=== PATIENT | male | born 1945 | race Caucasian/White ===

== ENCOUNTER 2019-04-30 14:12 | Emergency (ER) | payer MEDICARE, OTHER, SELFPAY ==
[2019-04-30 14:17] VITALS: BP 181/96; PULSE 70; RESP 18; TEMP 36.3; O2SAT 98
--- NOTE | 2019-04-30 14:22 | DI.RAD.S_ITS ---
PROCEDURE: XR RIBS RT MIN 3V W CXR 1V INDICATIONS: rib pain TECHNIQUE: 2 views of the right ribs were acquired, along with a single view chest. COMPARISON: None. FINDINGS: Surgical changes and devices: None. Bones and chest wall: No displaced right rib fractures or dislocations. No suspicious bony lesions. Overlying soft tissues appear unremarkable. Lungs and pleura: No pleural effusions or pneumothorax. Lungs appear clear. Mediastinum: Mediastinal contours appear normal. Heart size is normal. There is aortic atherosclerosis. IMPRESSION: No displaced right rib fractures. Dictated by: Abhilash Gregorio M.D. on 04/30/2019 at 13:36 Approved by: Abhilash Gregorio M.D. on 04/30/2019 at 13:37
--- NOTE | 2019-04-30 15:01 | ED.FALL ---
HPI - Fall General Chief Complaint: Fall Stated Complaint: fell, right side rib pain, hit head Time Seen by Provider: 04/30/19 14:25 Source: patient Mode of arrival: Ambulatory Limitations: no limitations History of Present Illness HPI Narrative: 74-year-old male with history of hypertension, former smoker and does not take anticoagulation presents with a chief complaint of right upper back pain after a fall. He was stepping down off of the tailgate when he misjudged the height and fell backwards on to his right upper back, he rolled back and then lightly struck his head. He denies any loss of consciousness nor nausea or vomiting. He has full recall. He denies any neck pain. He denies any pain, numbness, tingling or weakness in his extremities. He denies any trouble controlling bowel or bladder. He denies any chest pain or shortness of breath nor cough or hemoptysis. The pain in his right upper back is worse with motion and improves with rest. He is otherwise well and free of complaint MD complaint: fall Onset (ago): hour(s) Fall from: standing Fall witnessed: no Place fall occurred: home Loss of consciousness: none Prolonged down time: no Symptoms prior to fall: none Context: tripped/slipped Location of injury: back Related Data Previous Rx's Medication Instructions Recorded hydrocodone-acetaminophen 1 tab PO Q4-6H PRN #10 tab 04/30/19 lidocaine [Lidoderm] 1 patch TOP DAILY #15 each 04/30/19 Allergies Allergy/AdvReac Type Severity Reaction Status Date / Time lisinopril [From PRINIVIL] Allergy Intermediate HYPERACTIVI Unverified 07/29/17 12:02 TY Review of Systems Constitutional Constitutional: Denies chills, Denies fatigue, Denies fever(s), Denies frequent falls, Denies lethargy and Denies weakness Eyes Eyes: Denies change in vision, Denies eye discharge, Denies irritation and Denies loss of vision ENT Ears, Nose, Mouth, and Throat: Denies change in voice, Denies dizziness, Denies neck pain, Denies sore throat and Denies throat swelling Cardiovascular Cardiovascular: Denies chest pain, Denies irregular heart rhythm, Denies lightheadedness, Denies palpitations, Denies dyspnea, Denies dyspnea on exertion and Denies orthopnea Respiratory Respiratory: Denies cough, Denies dyspnea, Denies dyspnea on exertion and Denies wheezing Gastrointestinal Gastrointestinal: Denies abdominal pain, Denies change in bowel habits, Denies diarrhea, Denies nausea and Denies vomiting Genitourinary Genitourinary: Denies hematuria, Denies flank pain, Denies urinary incontinence and Denies urinary urgency Musculoskeletal Musculoskeletal: Reports back pain, Denies muscle weakness, Denies neck pain, Denies numbness and Denies tingling Integumentary/Breasts Skin/Breast: Denies pruritus, Denies erythema, Denies rash and Denies wounds Neurologic Neurologic: Denies behavioral changes, Denies confusion, Denies dizziness, Denies frequent falls, Denies loss of vision, Denies numbness, Denies tingling and Denies weakness Psychiatric Psychiatric: Denies anxiety, Denies behavioral changes, Denies confusion, Denies depression, Denies homicidal ideation and Denies suicidal ideation Endocrine Endocrine: Denies fatigue, Denies flushing and Denies palpitations Hematologic/Lymphatic Hematologic/Lymphatic: Denies easy bruising Allergic/Immunologic Allergic/Immunologic: Denies urticaria, Denies throat swelling and Denies wheezing Patient History Social History Smoking Status: Former smoker Smoking Status: Former smoker alcohol intake frequency: a few times a week Substance Use Type: does not use Exam Narrative Exam Narrative: GENERAL: [74] year old patient appears stated age. GCS 15 Well-nourished, well-developed patient, in mild distress. HEAD: Atraumatic. Normocephalic. No contusions or abrasions noted EYES: Pupils equal round and reactive. Extraocular motions intact. No scleral icterus. No injection or drainage. ENT: Nose without bleeding, purulent drainage. Throat without erythema, tonsillar hypertrophy or exudate. Airway patent. NECK: Trachea midline. Non tender, no step-off, full painless range of motion CARDIOVASCULAR: Regular rate and rhythm without murmurs, gallops, or rubs. RESPIRATORY: Clear to auscultation. Breath sounds equal bilaterally. No wheezes, rales, or rhonchi. GASTROINTESTINAL: Abdomen soft, non-tender, nondistended. EXTREMITIES: No edema or joint tenderness. Full painless range of motion of right shoulder BACK: There is some tenderness in mild swelling lateral to the middle thoracic her and medial to the right scapula. There is no break in the skin, no palpable hematoma or laceration. NEURO: AOx3. SKIN: No rash or erythema of visible areas Initial Vital Signs Initial Vital Signs: Vital Signs Temperature 97.3 F L 04/30/19 14:17 Pulse Rate 70 04/30/19 14:17 Respiratory Rate 18 04/30/19 14:17 Blood Pressure 181/96 H 04/30/19 14:17 Pulse Oximetry 98 04/30/19 14:17 Course Orders Ordered: ED Orders 04/30/19 14:22 XR ribs RT min 3V w CXR1V Stat Discontinued Medications Lidocaine (Lidoderm) 1 each TOP NOW ONE Stop: 04/30/19 14:55 Last Admin: 04/30/19 15:02 Dose: 1 each Documented by: ANTOLIN Vital Signs Vital signs: Vital Signs - 8 hr 04/30/19 14:17 04/30/19 15:14 Temperature 97.3 F L Pulse Rate 70 71 Respiratory Rate 18 16 Blood Pressure 181/96 H Blood Pressure [Left Arm] 163/94 H Pulse Oximetry 98 99 MDM - Fall Imaging Data Rib Xray: Radiologist's Impression: Kenton Riojas 74 M 1945 [place] [address] XRay Report Signed Patient: Kenton Riojas LMR#: [id number] : [id number]:[id number] Age/Sex: 74 / MDate of Service: 04/30/19 Loc: ED Accession Number: [id number] Procedure: XR ribs RT min 3V w CXR1V Ordering Provider: Christopher Bowman D.O. PROCEDURE: XR RIBS RT MIN 3V W CXR 1V INDICATIONS: rib pain TECHNIQUE: 2 views of the right ribs were acquired, along with a single view chest. COMPARISON: None. FINDINGS: Surgical changes and devices: None. Bones and chest wall: No displaced right rib fractures or dislocations. No suspicious bony lesions. Overlying soft tissues appear unremarkable. Lungs and pleura: No pleural effusions or pneumothorax. Lungs appear clear. Mediastinum: Mediastinal contours appear normal. Heart size is normal. There is aortic atherosclerosis. IMPRESSION: No displaced right rib fractures. Dictated by: Abhilash Gregorio M.D. on 04/30/2019 at 13:36 Approved by: Abhilash Gregorio M.D. on 04/30/2019 at 13:37 Discharge Plan Departure Patient Disposition: Home Clinical Impression: Contusion of ribs Qualifiers: Encounter type: initial encounter Laterality: right Qualified Code(s): S20.211A - Contusion of right front wall of thorax, initial encounter Discharge Date/Time: 04/30/19 15:24 Instructions: DI for Rib Contusion Activity Restrictions/Additional Instructions: *You have been diagnosed with [ fall with Right Posterior Rib contusion ] *What to do: *Take medications as directed *Follow up with your primary care provider in 2-3 days, call for an appointment. Let them know you were seen in the Emergency Department and that we ask that you be seen in follow up *Return to ER if you should have any new, worsening or concerning symptoms such as shortness of breath, cough with bloody sputum, mental status change Prescriptions: New hydrocodone-acetaminophen 5-325 mg tablet 1 tab PO Q4-6H PRN (Reason: pain) Qty: 10 RF: 0 lidocaine [Lidoderm] 5 % adhesive patch,medicated 1 patch TOP DAILY Qty: 15 RF: 0 Referrals: Asim Koenig MD [Primary Care Provider] -
[2019-04-30] MEDS: LIDOCAINE PATCH 1 EACH ADH..PATCH TOP (15:02)
[2019-04-30 15:14] VITALS: BP 163/94; PULSE 71; RESP 16; O2SAT 99
== END 2019-04-30 15:24 | disposition home or self-care (01) ==
PROVIDERS: Emergency Provider Emergency Medicine; Family Provider Family Medicine; PCP Family Medicine
DX: S20.211A Contusion of right front wall of thorax, initial encounter (principal); W18.30XA Fall on same level, unspecified, initial encounter
CPT/HCPCS: 71101; 99283

== ENCOUNTER → 2019-06-08 08:57 | Outpatient (CLI) | payer OTHER, SELFPAY ==
--- NOTE | 2019-06-08 09:07 | DI.US.S_ITS ---
PROCEDURE: US ABD AORTA ANEURYSM SCREEN INDICATIONS: PERSONAL HISTORY OF NICOTENE DEPENDENCE TECHNIQUE: Real time scanning was performed of the aorta and iliac arteries, with image documentation. COMPARISON: None. FINDINGS: Aorta: Proximal aortic diameter measures 1.7 cm. Mid-aorta measures 1.7 cm. Distal aortic diameter is 1.7 cm. Iliac arteries: Right common iliac artery measures 1.0 cm. Left common iliac artery measures 0.9 cm. IMPRESSION: No aneurysmal dilation. Dictated by: Lidya Bradley M.D. on 06/08/2019 at 11:25 Approved by: Lidya Bradley M.D. on 06/08/2019 at 11:26
== END ==
PROVIDERS: Family Provider Family Medicine; PCP Family Medicine; Referring Provider Physician Assistant; Visit Provider Physician Assistant
DX: Z13.6 Encounter for screening for cardiovascular disorders (principal); Z87.891 Personal history of nicotine dependence
CPT/HCPCS: 76706

== ENCOUNTER 2020-11-01 18:47 | Emergency (ER) | payer MEDICARE, OTHER, SELFPAY ==
[2020-11-01] VITALS (25 sets, daily range): BP systolic 129–204; BP diastolic 63–102; PULSE 46–72; RESP 6–20; TEMP 36.7; O2SAT 93–98; BMI 32.3
--- NOTE | 2020-11-01 19:11 | DI.RAD.S_ITS ---
PROCEDURE: XR CHEST 1V INDICATIONS: chest pain TECHNIQUE: One view of the chest was acquired. COMPARISON: None. FINDINGS: Surgical changes and devices: None. Lungs and pleura: Lungs are clear. No pleural effusions or pneumothorax. Mediastinum: Mediastinal contours appear normal. Heart size is normal. Bones and chest wall: No suspicious bony lesions. Overlying soft tissues appear unremarkable. Old right 5th and 6th rib fractures are noted. IMPRESSION: No acute cardiopulmonary disease. Dictated by: Vivian Brian M.D. on 11/01/2020 at 19:30 Approved by: Vviian Brian M.D. on 11/01/2020 at 19:31
--- NOTE | 2020-11-01 19:15 | ED.CHESTPAIN ---
HPI - Chest Pain General Chief Complaint: Chest Pain Stated Complaint: Chest Pain, SOB, Nausea Time Seen by Provider: 11/01/20 18:50 Source: patient and family Mode of arrival: Ambulatory Limitations: no limitations History of Present Illness HPI narrative: 75M former smoker with history of HTN presents with the chief complaint of multiple episodes of retrosternal chest pressure over the past 2-3 days. He states that initially these episodes were brought on by exertion and would improve with rest. Over those few days he has had increasing frequency and severity of symptoms. His maximum pressure is 8/10, he is currently 2/10. He has never had anything like this and denies any history of stress test or heart catheterization. He states that it is a pressure and squeezing type pain that will radiate into his left shoulder. He denies associated symptoms such as dizziness, weakness, lightheadedness but does get short of breath and nauseated. He denies any unexplained diaphoresis. Related Data Allergies Allergy/AdvReac Type Severity Reaction Status Date / Time lisinopril [From PRINIVIL] Allergy Intermediate HYPERACTIVI Verified 11/01/20 20:30 TY Review of Systems Review of Systems Narrative: GENERAL: Denies chills, fatigue, malaise, fever, sweats. HEENT: Denies sinus pain, ear pain, sore throat, difficulty swallowing, dizziness. RESPIRATORY: See HPI CARDIOVASCULAR: See HPI GASTROINTESTINAL: Denies nausea, vomiting, abdominal pain, diarrhea, constipation, melena. : Denies dysuria, frequency, incontinence, hematuria, urinary retention. MUSCULOSKELETAL: denies weakness, joint pain, or bony pain SKIN: Denies rash, skin lesions, or other NEUROLOGIC: Denies weakness, headache, numbness, change in speech, confusion, seizures, incoordination. PSYCHIATRIC: No concerning psychosocial issues. 12 point review of systems is negative except for those stated above Patient History Medical History (Updated 11/01/20 @ 20:50 by Gabby Sánchez RN) Hypertension Social History Smoking Status: Former smoker Smoking Status: Former smoker alcohol intake frequency: a few times a week Substance Use Type: does not use Exam Narrative Exam Narrative: GENERAL: [75] year old patient appears stated age. Well-developed patient, in mild distress. HEAD: Atraumatic. Normocephalic. EYES: Pupils equal round and reactive. Extraocular motions intact. No scleral icterus. No injection or drainage. ENT: Nose without bleeding, purulent drainage. Throat without erythema, tonsillar hypertrophy or exudate. Airway patent. NECK: Trachea midline. Non tender CARDIOVASCULAR: Regular rate and rhythm without murmurs, gallops, or rubs. RESPIRATORY: Clear to auscultation. Breath sounds equal bilaterally. No wheezes, rales, or rhonchi. GASTROINTESTINAL: Abdomen soft, non-tender, nondistended. EXTREMITIES: No edema or joint tenderness. BACK: Nontender without deformity or crepitance. No flank tenderness. NEURO: AOx3. SKIN: No rash or erythema of visible areas Initial Vital Signs Initial Vital Signs: Vital Signs Temperature 98.1 F 11/01/20 18:51 Pulse Rate 70 11/01/20 18:51 Respiratory Rate 20 11/01/20 18:51 Blood Pressure 186/102 H 11/01/20 18:51 Pulse Oximetry 96 11/01/20 18:51 Course Orders Ordered: ED Orders 11/01/20 19:05 Complete Blood Count AUTO DIFF Stat Comprehensive Metabolic Panel Stat Lipase Stat Magnesium Stat NT-proBNP (BNP-Adult 18+) Stat Partial Thromboplastin Time Stat Prothrombin Time INR Stat Troponin & CK Cardiac Panel Stat 11/01/20 19:10 COVID19 -Nasal swab/Pre-Proc Stat 11/01/20 19:11 XR chest 1V Stat EKG-12 Lead Stat Heparin Sodium/Dextrose (Heparin Drip) 25,000 unit in 500 mls @ 20 mls/hr IV CONT ANNALISA; Protocol Last Admin: 11/01/20 19:31 Dose: 1,000 units/hr, 20 mls/hr Documented by: [email or web address] Nitroglycerin (Nitroglycerin 0.4 Mg Sl Tab) 0.4 mg SL [id number] PRN PRN Reason: Chest Pain Last Admin: 11/01/20 19:22 Dose: 0.4 mg Documented by: [email or web address] Discontinued Medications Acetaminophen (Acetaminophen 325 Mg Tablet) 975 mg PO NOW ONE Stop: 11/01/20 21:38 Last Admin: 11/01/20 21:40 Dose: 975 mg Documented by: [email or web address] Heparin Sodium (Porcine) (Heparin 5,000 Unit/Ml Vial) 5,000 unit IV NOW ONE Stop: 11/01/20 19:20 Last Admin: 11/01/20 19:30 Dose: 5,000 unit Documented by: [email or web address] Metoprolol Tartrate (Metoprolol Tartrate 5 Mg/5 Ml Inj) 5 mg IV Q5M ANNALISA Stop: 11/01/20 19:26 Last Admin: 11/01/20 22:45 Dose: Not Given Documented by: [email or web address] Admin: 11/01/20 22:45 Dose: Not Given Documented by: [email or web address] Admin: 11/01/20 19:23 Dose: 5 mg Documented by: [email or web address] Ondansetron HCl (Ondansetron 4 Mg/2 Ml Inj) 4 mg IV NOW ONE Stop: 11/01/20 22:47 Last Admin: 11/01/20 22:51 Dose: 4 mg Documented by: [email or web address] Reevaluation(s) Reevaluation #1: Patient with improvement of symptoms after 1st nitro, down to 04/29, will repeat Reevaluation #2: Patient reports no pain after 2nd nitro Consultations Consultation #1: Given worsening symptoms with increased duration and episodes while at rest (unstable angina) placed a call with Cardiology in [place] (Dr. Burnett). He recommends [place] [facility] and given the unstable nature with likely need of more aggressive cardiac care and possible heart catheterization. Vital Signs Vital signs: Vital Signs - 8 hr 11/01/20 18:51 11/01/20 19:13 11/01/20 19:15 Temperature 98.1 F Pulse Rate 70 72 72 Respiratory Rate 20 14 9 L Blood Pressure 186/102 H 204/90 H Pulse Oximetry 96 97 97 11/01/20 19:22 11/01/20 19:30 11/01/20 19:34 Temperature Pulse Rate 72 67 68 Respiratory Rate 14 9 L 9 L Blood Pressure 195/93 H 155/72 H 132/63 Pulse Oximetry 96 94 93 11/01/20 19:40 11/01/20 19:50 11/01/20 20:00 Temperature Pulse Rate 69 66 63 Respiratory Rate 16 14 12 Blood Pressure 138/67 143/70 H 139/74 Pulse Oximetry 93 94 96 11/01/20 20:10 11/01/20 20:20 11/01/20 20:30 Temperature Pulse Rate 63 63 63 Respiratory Rate 8 L 6 L 14 Blood Pressure 139/76 143/79 H 144/77 H Pulse Oximetry 95 96 95 11/01/20 20:40 11/01/20 20:50 11/01/20 21:00 Temperature Pulse Rate 64 65 67 Respiratory Rate 13 9 L 10 L Blood Pressure 157/76 H 129/73 135/71 Pulse Oximetry 96 95 95 11/01/20 21:10 11/01/20 21:11 11/01/20 21:20 Temperature Pulse Rate 67 68 70 Respiratory Rate 19 13 11 L Blood Pressure 174/75 H 181/80 H Pulse Oximetry 96 96 96 11/01/20 21:41 11/01/20 21:43 11/01/20 21:50 Temperature Pulse Rate 46 L 70 69 Respiratory Rate 17 12 Blood Pressure 177/85 H 191/81 H Pulse Oximetry 98 96 96 11/01/20 22:00 11/01/20 22:10 11/01/20 22:11 Temperature Pulse Rate 66 66 66 Respiratory Rate 9 L 8 L 9 L Blood Pressure 169/76 H 156/69 H Pulse Oximetry 96 95 95 11/01/20 22:20 Temperature Pulse Rate 66 Respiratory Rate 10 L Blood Pressure Pulse Oximetry 95 MDM - Chest Pain Lab Data Result diagrams: 11/01/20 19:05 11/01/20 19:05 Labs: Lab Results 11/01/20 11/01/20 11/01/20 Range/Units 19:05 19:05 19:05 WBC 8.6 (4.5-11.0) X10^3/uL RBC 5.34 (4.5-5.9) X10^6/uL Hgb 15.6 (13.5-17.5) g/dL Hct 46.0 (41-53) % MCV 86.2 (80-100) fL MCH 29.1 (26-34) PG MCHC 33.8 (30-36) % RDW 15.2 H (11.6-14.8) % Plt Count 207 (150-400) X10^3/uL Neut % (Auto) 61.3 (50-75) % Lymph % (Auto) 25.7 (25-40) % Forrest % (Auto) 8.0 (3-14) % Eos % (Auto) 3.6 (2-4) % Baso % (Auto) 1.4 (0-2) % Neut # (Auto) 5200 (9611-2401) /uL Lymph # (Auto) 2200 (3478-0479) /uL Forrest # (Auto) 700 (0-900) /uL Eos # (Auto) 300 (0-450) /uL Baso # (Auto) 100 (0-100) /uL PT 12.0 (10.1-12.7) SECONDS INR 1.1 (0.9-1.3) APTT 33 (26.4-36.2) SECONDS Sodium 138 (137-145) mmol/L Potassium 4.0 (3.4-5.1) mmol/L Chloride 102 (98-107) mmol/L Carbon Dioxide 24 (22-32) mmol/L BUN 27 H (9-20) mg/dL Creatinine 0.98 (0.66-1.25) mg/dL Estimated GFR > 60.0 (>60) mL/min BUN/Creatinine Ratio 27.6 H (6-22) Glucose 91 (80-110) mg/dL Calcium 9.8 (8.4-10.2) mg/dL Magnesium 2.2 (1.6-2.3) mg/dL Total Bilirubin 0.6 (0.2-1.3) mg/dL AST 41 (17-59) IU/L ALT 30 (<50) IU/L Alkaline Phosphatase 72 (38-126) U/L Total Creatine Kinase 163 (55-170) U/L CK-MB (CK-2) 2.97 H (<2.37) ng/mL CK-MB (CK-2) Rel Index 1.8 (1.5-5.0) % Troponin I 0.041 H (0.01-0.034) ng/mL NT-Pro-B Natriuret Pep 98 (<450) pg/mL Total Protein 8.0 (6.3-8.2) g/dL Albumin 5.0 (3.5-5.0) g/dL Globulin 3.0 (1.7-4.1) g/dL Albumin/Globulin Ratio 1.7 (1.0-2.8) Lipase 75 (23-300) U/L SARS-CoV-2 (PCR) (Negative) 07/15/21 Range/Units 19:10 WBC (4.5-11.0) X10^3/uL RBC (4.5-5.9) X10^6/uL Hgb (13.5-17.5) g/dL Hct (41-53) % MCV (80-100) fL MCH (26-34) PG MCHC (30-36) % RDW (11.6-14.8) % Plt Count (150-400) X10^3/uL Neut % (Auto) (50-75) % Lymph % (Auto) (25-40) % Forrest % (Auto) (3-14) % Eos % (Auto) (2-4) % Baso % (Auto) (0-2) % Neut # (Auto) (1763-1802) /uL Lymph # (Auto) (9370-1501) /uL Forrest # (Auto) (0-900) /uL Eos # (Auto) (0-450) /uL Baso # (Auto) (0-100) /uL PT (10.1-12.7) SECONDS INR (0.9-1.3) APTT (26.4-36.2) SECONDS Sodium (137-145) mmol/L Potassium (3.4-5.1) mmol/L Chloride (98-107) mmol/L Carbon Dioxide (22-32) mmol/L BUN (9-20) mg/dL Creatinine (0.66-1.25) mg/dL Estimated GFR (>60) mL/min BUN/Creatinine Ratio (6-22) Glucose (80-110) mg/dL Calcium (8.4-10.2) mg/dL Magnesium (1.6-2.3) mg/dL Total Bilirubin (0.2-1.3) mg/dL AST (17-59) IU/L ALT (<50) IU/L Alkaline Phosphatase (38-126) U/L Total Creatine Kinase (55-170) U/L CK-MB (CK-2) (<2.37) ng/mL CK-MB (CK-2) Rel Index (1.5-5.0) % Troponin I (0.01-0.034) ng/mL NT-Pro-B Natriuret Pep (<450) pg/mL Total Protein (6.3-8.2) g/dL Albumin (3.5-5.0) g/dL Globulin (1.7-4.1) g/dL Albumin/Globulin Ratio (1.0-2.8) Lipase (23-300) U/L SARS-CoV-2 (PCR) Negative (Negative) ECG Data Interpretation: EKG 1: NSR rate 75 with PACs and 1st degree block. No Occlusive findings. No ST elevation or depression. No hyperacute T waves. Discharge Plan Departure Referrals: Walter Gilbert MD [Primary Care Provider] -
[2020-11-01 19:18] LABS: Add Manual Diff / Slide Review NO; Basophils Absolute Auto 100 /uL (0-100); Basophils Percent Auto 1.4 % (0-2); Eosinophils Absolute Auto 300 /uL (0-450); Eosinophils Percent Auto 3.6 % (2-4); Hemoglobin 15.6 g/dL (13.5-17.5); Lymphocytes Absolute Auto 2200 /uL (1100-4500); Lymphocytes Percent Auto 25.7 % (25-40); Mean Corpuscular HGB Conc 33.8 % (30-36); Mean Corpuscular Hemoglobin 29.1 PG (26-34); Mean Corpuscular Volume 86.2 fL (80-100); Monocytes Absolute Auto 700 /uL (0-900); Neutrophils Absolute Auto 5200 /uL (1500-7000); Neutrophils Percent Auto 61.3 % (50-75); Platelet Count 207 X10^3/uL (150-400); Red Blood Cell Count 5.34 X10^6/uL (4.5-5.9); Red Cell Distribution Width 15.2 % (11.6-14.8); White Blood Cell Count 8.6 X10^3/uL (4.5-11.0)
[2020-11-01 19:19] LABS: INR 1.1 (0.9-1.3)
[2020-11-01 19:21] LABS: PTT Partial Thromboplastin Tim 33 SECONDS (26.4-36.2)
[2020-11-01] MEDS: NITROGLYCERIN 0.4 MG SL TAB SL (19:22)
[2020-11-01] MEDS: METOPROLOL TARTRATE 5 MG/5 ML INJ IV (19:23)
[2020-11-01] MEDS: HEPARIN 5,000 UNIT/ML VIAL 5000 UNIT IV (19:30)
[2020-11-01 19:31] LABS: Alanine Aminotransferase 30 IU/L (<50); Albumin Globulin Ratio 1.7 (1.0-2.8); Alkaline Phosphatase 72 U/L (38-126); Aspartate Aminotransferase 41 IU/L (17-59); BUN Creatinine Ratio 27.6 (6-22); Bilirubin Total 0.6 mg/dL (0.2-1.3); Blood Urea Nitrogen 27 mg/dL (9-20); Calcium 9.8 mg/dL (8.4-10.2); Carbon Dioxide 24 mmol/L (22-32); Chloride 102 mmol/L (98-107); Creatine Kinase 163 U/L (55-170); Estimated Glomerular Filt Rate > 60.0 mL/min (>60); Glucose 91 mg/dL (80-110); HEMOLYSIS 18 (0-50); Lipase 75 U/L (23-300); Magnesium 2.2 mg/dL (1.6-2.3); Sodium 138 mmol/L (137-145)
[2020-11-01] MEDS: HEPARIN DRIP 25,000 UNIT/500 ML IV.SOLN 20 UNIT IV (19:31)
[2020-11-01 19:42] LABS: NT-proBNP (BNP-Adult 18+) 98 pg/mL (<450); Troponin I 0.041 ng/mL (0.01-0.034)
[2020-11-01 19:45] LABS: CKMB % Relative Index 1.8 % (1.5-5.0); Creatine Kinase MB 2.97 ng/mL (<2.37)
[2020-11-01 19:48] LABS: COVID19 -Nasal RAPID Negative (Negative)
[2020-11-01] MEDS: ACETAMINOPHEN 325 MG TABLET 975 MG PO (21:40)
[2020-11-01] MEDS: ONDANSETRON 4 MG/2 ML INJ IV (22:51)
--- NOTE | 2020-11-06 14:29 | PC.NURSE ---
Heparin trip continued during transport at 2330
== END 2020-11-01 23:30 | disposition short-term general hospital (02) ==
PROVIDERS: Emergency Provider Emergency Medicine; Family Provider Family Medicine; PCP Family Medicine
DX: I20.0 Unstable angina (principal); R35.0 Frequency of micturition; Z20.822 Contact with and (suspected) exposure to COVID-19
CPT/HCPCS: 36415; 71045; 80053; 82550; 82553; 83690; 83735; 83880; 84484; 85025; 85610; 85730; 87635; 93005; 93010; 96365; 96366; 96375; 99284; 99285; C9803; J1644; J2405

== ENCOUNTER 2020-11-28 14:41 | Inpatient (IN) | payer MEDICARE, OTHER, SELFPAY ==
[2020-11-28] VITALS (20 sets, daily range): BP systolic 112–163; BP diastolic 59–117; PULSE 68–86; RESP 15–32; TEMP 36.4–36.6; O2SAT 85–96; BMI 33.0; BMI 30.7
--- NOTE | 2020-11-28 14:55 | DI.RAD.S_ITS ---
PROCEDURE: XR CHEST 1V INDICATIONS: shortness of breath TECHNIQUE: One view of the chest was acquired. COMPARISON: [facility], CR, XR CHEST 1V, 11/01/2020, 19:17. FINDINGS: Surgical changes and devices: None. Lungs and pleura: Patchy bilateral pulmonary opacities are present.. Mediastinum: Mediastinal contours appear normal. Heart size is enlarged. Bones and chest wall: No suspicious bony lesions. Overlying soft tissues appear unremarkable. IMPRESSION: Patchy bilateral pulmonary opacities most suggestive of pneumonia. Underlying areas of edema and/or atelectasis cannot be excluded. Dictated by: Lidya Bradley M.D. on 11/28/2020 at 15:58 Approved by: Lidya Bradley M.D. on 11/28/2020 at 15:58
[2020-11-28 15:12] LABS: Add Manual Diff / Slide Review NO; Basophils Absolute Auto 0 /uL (0-100); Basophils Percent Auto 0.7 % (0-2); Eosinophils Absolute Auto 0 /uL (0-450); Hematocrit 38.1 % (41-53); Hemoglobin 13.1 g/dL (13.5-17.5); Lymphocytes Absolute Auto 700 /uL (1100-4500); Lymphocytes Percent Auto 15.3 % (25-40); Mean Corpuscular HGB Conc 34.4 % (30-36); Mean Corpuscular Hemoglobin 28.7 PG (26-34); Mean Corpuscular Volume 83.5 fL (80-100); Monocytes Absolute Auto 400 /uL (0-900); Monocytes Percent Auto 9.1 % (3-14); Neutrophils Absolute Auto 3600 /uL (1500-7000); Neutrophils Percent Auto 74.9 % (50-75); Platelet Count 128 X10^3/uL (150-400); Red Blood Cell Count 4.57 X10^6/uL (4.5-5.9); Red Cell Distribution Width 15.4 % (11.6-14.8); White Blood Cell Count 4.8 X10^3/uL (4.5-11.0)
[2020-11-28 15:21] LABS: COVID19 -Nasal RAPID POSITIVE (Negative)
[2020-11-28 15:23] LABS: Lactate (Lactic Acid) 1.6 mmol/L (0.7-2.1)
[2020-11-28 15:24] LABS: Alanine Aminotransferase 132 IU/L (<50); Albumin 3.3 g/dL (3.5-5.0); Albumin Globulin Ratio 1.1 (1.0-2.8); Alkaline Phosphatase 57 U/L (38-126); Aspartate Aminotransferase 297 IU/L (17-59); BUN Creatinine Ratio 20.5 (6-22); Bilirubin Total 1.1 mg/dL (0.2-1.3); Blood Urea Nitrogen 24 mg/dL (9-20); Calcium 7.9 mg/dL (8.4-10.2); Carbon Dioxide 25 mmol/L (22-32); Chloride 97 mmol/L (98-107); Estimated Glomerular Filt Rate > 60.0 mL/min (>60); Globulin 2.9 g/dL (1.7-4.1); Glucose 129 mg/dL (80-110); HEMOLYSIS < 15 (0-50); Potassium 3.5 mmol/L (3.4-5.1); Sodium 129 mmol/L (137-145); Total Protein 6.2 g/dL (6.3-8.2)
--- NOTE | 2020-11-28 15:46 | ED_ITS ---
HPI - Fever General Chief Complaint: Fever Stated Complaint: very weak and aches all over Time Seen by Provider: 11/28/20 14:53 Source: patient and family Mode of arrival: Wheelchair Limitations: no limitations History of Present Illness HPI Narrative: Kenton presents today with chief complaint of intense weakness a nd his fatigue over the last 3 weeks but has gotten much worse over the last few days. He reports that he had contact with his neighbor who recently tested positive for COVID. He is non vaccinated for COVID. He had an episode of chest pain 3 weeks ago and is scheduled for angiography next Thursday at [facility]. He denies any significant chest pain or difficulty breathing at this time. He reports a decreased appetite and that feeling sweaty. He has no other acute concerns or complaints at this time. Related Data Allergies Allergy/AdvReac Type Severity Reaction Status Date / Time lisinopril [From PRINIVIL] Allergy Intermediate HYPERACTIVI Verified 11/28/20 15:00 TY Review of Systems Constitutional Constitutional: Reports body ache(s), Reports chills, Reports fatigue, Reports malaise and Reports weakness Cardiovascular Cardiovascular: Denies chest pain, Reports diaphoresis, Denies rapid heart rate, Denies irregular heart rhythm and Denies leg edema Respiratory Respiratory: Reports chest congestion, Reports cough and Reports pain on inspiration Gastrointestinal Gastrointestinal: Reports as per HPI Musculoskeletal Musculoskeletal: Reports arthralgias and Reports muscle cramps Neurologic Neurologic: Reports weakness Endocrine Endocrine: Reports fatigue Patient History Medical History (Updated 11/28/20 @ 17:22 by Tony Bush PA-C) Hypertension Social History Smoking Status: Former smoker Smoking Status: Former smoker alcohol intake frequency: a few times a week Substance Use Type: does not use Exam Narrative Exam Narrative: Const General: cooperative, Ill appearing, diaphoretic Nutritional Appearance: average body habitus and well nourished Orientation: alert and oriented x3 HENMT Head: normal to inspection and normocephalic Ears: hearing grossly normal bilaterally, external ears normal, TM's normal bilaterally, EAC's normal, mastoids normal and no periauricular adenopathy Nose: external nose normal, nares normal and no nasal discharge Face and sinus: normal facial exam, sinuses nontender and face symmetric Mouth: oral mucosae normal, lip normal, tongue normal and moist mucous membranes Teeth and gingiva: dentition normal and gingiva normal Throat: posterior oropharynx normal, uvula midline, no postnasal drainage and no uvular edema Eyes periorbital findings normal, eyelids normal, conjunctivae normal Neck: normal visual inspection, full ROM, no lymphadenopathy, no meningeal signs and supple Resp normal respiratory effort, able to speak in complete sentences, not labored and no respiratory distress, decreased breath sounds bilaterally and mild wheezing Cardio regular rate regular rhythm Heart Sounds: no gallops, no murmurs and no rubs Extrem normal to inspection, no pedal edema and no calf tenderness Neuro Alert and Oriented x3, moves all extremities. Initial Vital Signs Initial Vital Signs: Vital Signs Temperature 97.8 F 11/28/20 14:52 Pulse Rate 76 11/28/20 14:52 Respiratory Rate 20 11/28/20 14:52 Blood Pressure 133/72 11/28/20 14:52 Pulse Oximetry 85 L 11/28/20 14:52 Course Orders Ordered: ED Orders 11/28/20 14:50 COVID19 -Nasal swab/Pre-Proc Stat 11/28/20 14:55 XR chest 1V Stat EKG-12 Lead Stat Measure peak expiratory flow ONCE RT Consult Eval and Treat Now 11/28/20 15:00 Complete Blood Count AUTO DIFF Stat Comprehensive Metabolic Panel Stat Ferritin Stat Lactate (Lactic Acid) Stat Lactate Dehydrogenase Stat NT-proBNP (BNP-Adult 18+) Stat Procalcitonin Stat 11/28/20 15:50 Arterial Blood Gas Stat Acetaminophen (Acetaminophen 325 Mg Tablet) 650 mg PO Q6HR PRN PRN Reason: Fever/Mild Pain (1-3) Hydrocodone Bitart/Acetaminophen (Hydrocodone/Acet 5/325 Tablet) 2 tab PO Q4HR PRN PRN Reason: Pain, Moderate (4-6) Al Hydrox/Mg Hydrox/Simethicone (Mag Hydrox/Alum/Simeth 30 Ml Udc) 30 ml PO Q6HR PRN PRN Reason: Dyspepsia Dexamethasone (Dexamethasone 1 Mg Tablet) 6 mg PO DAILY [facility] Heparin Sodium (Porcine) (Heparin 5,000 Unit/Ml Vial) 5,000 unit SUBCUT BID ANNALISA Remdesivir 100 mg/ Sodium (Chloride) 250 mls @ 250 mls/hr IV DAILY ANNALISA Stop: 12/07/20 16:59 Remdesivir 100 mg/ Sodium (Chloride) 250 mls @ 250 mls/hr IV DAILY ANNALISA Stop: 12/01/20 19:42 Magnesium Hydroxide (Magnesium Hydroxide 30 Ml Udc) 30 ml PO DAILY PRN PRN Reason: Constipation Naloxone HCl (Naloxone 0.4 Mg/Ml Vial) 0.2 mg IV Q2MIN PRN PRN Reason: Opiate Reversal Ondansetron HCl (Ondansetron 4 Mg Odt) 4 mg PO Q8HR PRN PRN Reason: Nausea And Vomiting Discontinued Medications Albuterol/Ipratropium (Albuterol/Ipratropium 3 Ml Ampul) 3 ml INH NOW ONE Stop: 11/28/20 15:46 Last Admin: 11/28/20 16:01 Dose: 3 ml Documented by: BRANDON Remdesivir 200 mg/ Sodium (Chloride) 250 mls @ 250 mls/hr IV NOW ONE Stop: 11/28/20 17:59 Last Infusion: 11/28/20 18:39 Dose: 0 mls/hr Documented by: Admin: 11/28/20 17:26 Dose: 250 mls/hr Documented by: LUCAS Methylprednisolone (Methylprednisolone 125 Mg/2 Ml Vial) 125 mg IV NOW ONE Stop: 11/28/20 15:45 Last Admin: 11/28/20 15:52 Dose: 125 mg Documented by: LUCAS Vital Signs Vital signs: Vital Signs - 8 hr 11/28/20 14:52 11/28/20 14:56 11/28/20 15:00 Temperature 97.8 F Pulse Rate 76 78 77 Respiratory Rate 20 15 23 Blood Pressure 133/72 112/65 Pulse Oximetry 85 L 94 96 11/28/20 15:30 11/28/20 16:00 11/28/20 16:11 Temperature Pulse Rate 79 75 86 Respiratory Rate 28 H 32 H 16 Blood Pressure 119/65 122/69 Pulse Oximetry 92 93 93 11/28/20 16:30 11/28/20 17:00 11/28/20 17:30 Temperature Pulse Rate 74 75 73 Respiratory Rate 24 Blood Pressure 120/60 134/65 Pulse Oximetry 94 94 93 11/28/20 17:31 11/28/20 18:00 11/28/20 18:01 Temperature Pulse Rate 74 75 75 Respiratory Rate 20 Blood Pressure 123/59 L 161/81 H Pulse Oximetry 93 93 94 11/28/20 18:30 11/28/20 18:31 Temperature Pulse Rate 68 69 Respiratory Rate Blood Pressure 155/117 H Pulse Oximetry 95 94 MDM - Fever Lab Data Result diagrams: 11/28/20 15:00 11/28/20 15:00 Labs: Lab Results 11/28/20 11/28/20 11/28/20 Range/Units 14:50 15:00 15:00 WBC 4.8 (4.5-11.0) X10^3/uL RBC 4.57 (4.5-5.9) X10^6/uL Hgb 13.1 L (13.5-17.5) g/dL Hct 38.1 L (41-53) % MCV 83.5 (80-100) fL MCH 28.7 (26-34) PG MCHC 34.4 (30-36) % RDW 15.4 H (11.6-14.8) % Plt Count 128 L (150-400) X10^3/uL Neut % (Auto) 74.9 (50-75) % Lymph % (Auto) 15.3 L (25-40) % Stanley % (Auto) 9.1 (3-14) % Eos % (Auto) 0.0 L (2-4) % Baso % (Auto) 0.7 (0-2) % Neut # (Auto) 3600 (1949-0518) /uL Lymph # (Auto) 700 L (7609-5612) /uL Stanley # (Auto) 400 (0-900) /uL Eos # (Auto) 0 (0-450) /uL Baso # (Auto) 0 (0-100) /uL ABG pH (7.35-7.45) ABG pCO2 (35-45) mmHg ABG pO2 (80-100) mmHg ABG HCO3 (22-26) mmol/L ABG Total CO2 (21-31) mmol/L ABG O2 Saturation (95-100) % ABG Base Excess (-2-2) mmol/L FiO2 Sodium 129 L (137-145) mmol/L Potassium 3.5 (3.4-5.1) mmol/L Chloride 97 L (98-107) mmol/L Carbon Dioxide 25 (22-32) mmol/L BUN 24 H (9-20) mg/dL Creatinine 1.17 (0.66-1.25) mg/dL Estimated GFR > 60.0 (>60) mL/min BUN/Creatinine Ratio 20.5 (6-22) Glucose 129 H (80-110) mg/dL Lactate (0.7-2.1) mmol/L Calcium 7.9 L (8.4-10.2) mg/dL Ferritin (18-464) ng/mL Total Bilirubin 1.1 (0.2-1.3) mg/dL AST 297 H (17-59) IU/L ALT 132 H (<50) IU/L Alkaline Phosphatase 57 (38-126) U/L Lactate Dehydrogenase (313-618) U/L NT-Pro-B Natriuret Pep (<450) pg/mL Total Protein 6.2 L (6.3-8.2) g/dL Albumin 3.3 L (3.5-5.0) g/dL Globulin 2.9 (1.7-4.1) g/dL Albumin/Globulin Ratio 1.1 (1.0-2.8) Procalcitonin (<0.5) ng/mL SARS-CoV-2 (PCR) Positive H (Negative) 11/28/20 11/28/20 11/28/20 Range/Units 15:00 15:00 15:00 WBC (4.5-11.0) X10^3/uL RBC (4.5-5.9) X10^6/uL Hgb (13.5-17.5) g/dL Hct (41-53) % MCV (80-100) fL MCH (26-34) PG MCHC (30-36) % RDW (11.6-14.8) % Plt Count (150-400) X10^3/uL Neut % (Auto) (50-75) % Lymph % (Auto) (25-40) % Stanley % (Auto) (3-14) % Eos % (Auto) (2-4) % Baso % (Auto) (0-2) % Neut # (Auto) (6975-2926) /uL Lymph # (Auto) (0352-6733) /uL Stanley # (Auto) (0-900) /uL Eos # (Auto) (0-450) /uL Baso # (Auto) (0-100) /uL ABG pH (7.35-7.45) ABG pCO2 (35-45) mmHg ABG pO2 (80-100) mmHg ABG HCO3 (22-26) mmol/L ABG Total CO2 (21-31) mmol/L ABG O2 Saturation (95-100) % ABG Base Excess (-2-2) mmol/L FiO2 Sodium (137-145) mmol/L Potassium (3.4-5.1) mmol/L Chloride (98-107) mmol/L Carbon Dioxide (22-32) mmol/L BUN (9-20) mg/dL Creatinine (0.66-1.25) mg/dL Estimated GFR (>60) mL/min BUN/Creatinine Ratio (6-22) Glucose (80-110) mg/dL Lactate 1.6 (0.7-2.1) mmol/L Calcium (8.4-10.2) mg/dL Ferritin 2780 H (18-464) ng/mL Total Bilirubin (0.2-1.3) mg/dL AST (17-59) IU/L ALT (<50) IU/L Alkaline Phosphatase (38-126) U/L Lactate Dehydrogenase 3368 H (313-618) U/L NT-Pro-B Natriuret Pep 342 (<450) pg/mL Total Protein (6.3-8.2) g/dL Albumin (3.5-5.0) g/dL Globulin (1.7-4.1) g/dL Albumin/Globulin Ratio (1.0-2.8) Procalcitonin 0.21 (<0.5) ng/mL SARS-CoV-2 (PCR) (Negative) 11/28/20 Range/Units 15:50 WBC (4.5-11.0) X10^3/uL RBC (4.5-5.9) X10^6/uL Hgb (13.5-17.5) g/dL Hct (41-53) % MCV (80-100) fL MCH (26-34) PG MCHC (30-36) % RDW (11.6-14.8) % Plt Count (150-400) X10^3/uL Neut % (Auto) (50-75) % Lymph % (Auto) (25-40) % Stanley % (Auto) (3-14) % Eos % (Auto) (2-4) % Baso % (Auto) (0-2) % Neut # (Auto) (9807-5945) /uL Lymph # (Auto) (1360-5351) /uL Stanley # (Auto) (0-900) /uL Eos # (Auto) (0-450) /uL Baso # (Auto) (0-100) /uL ABG pH 7.51 H (7.35-7.45) ABG pCO2 31.4 L (35-45) mmHg ABG pO2 65 L (80-100) mmHg ABG HCO3 25 (22-26) mmol/L ABG Total CO2 26 (21-31) mmol/L ABG O2 Saturation 95 (95-100) % ABG Base Excess 2.0 (-2-2) mmol/L FiO2 28 Sodium (137-145) mmol/L Potassium (3.4-5.1) mmol/L Chloride (98-107) mmol/L Carbon Dioxide (22-32) mmol/L BUN (9-20) mg/dL Creatinine (0.66-1.25) mg/dL Estimated GFR (>60) mL/min BUN/Creatinine Ratio (6-22) Glucose (80-110) mg/dL Lactate (0.7-2.1) mmol/L Calcium (8.4-10.2) mg/dL Ferritin (18-464) ng/mL Total Bilirubin (0.2-1.3) mg/dL AST (17-59) IU/L ALT (<50) IU/L Alkaline Phosphatase (38-126) U/L Lactate Dehydrogenase (313-618) U/L NT-Pro-B Natriuret Pep (<450) pg/mL Total Protein (6.3-8.2) g/dL Albumin (3.5-5.0) g/dL Globulin (1.7-4.1) g/dL Albumin/Globulin Ratio (1.0-2.8) Procalcitonin (<0.5) ng/mL SARS-CoV-2 (PCR) (Negative) MDM Narrative Medical decision making narrative: Kenton is a patient who tested positive for COVID and has evidence of bilateral pneumonia. He appears to have acute respiratory failure with hypoxemia which is requiring oxygen therapy to maintain adequate levels. We will admit him here in this hospital for oxygen therapy as well as continued treatment. His was instructed that she should isolate herself as she has had significant exposure. The hospitalist was called and agreed to admit the patient. All of this was discussed with the patient and his and they both verbalized understanding and agreement to the plan. Discharge Plan Departure Patient Disposition: Admitted As Inpatient Clinical Impression: Acute respiratory failure due to COVID-19, Acute hyponatremia Bilateral pneumonia Qualifiers: Pneumonia type: due to unspecified organism Lung location: unspecified part of lung Qualified Code(s): J18.9 - Pneumonia, unspecified organism Discharge Date/Time: 11/28/20 19:22 Admit Date/Time: 11/28/20 18:40 Admit Provider: Pretty Caputo
[2020-11-28] MEDS: methylPREDNISolone 125 MG/2 ML VIAL IV (15:52)
[2020-11-28 15:53] LABS: NT-proBNP (BNP-Adult 18+) 342 pg/mL (<450)
[2020-11-28 15:54] LABS: Lactate Dehydrogenase 3368 U/L (313-618)
[2020-11-28 15:58] LABS: PCO2 ABG 31.4 mmHg (35-45); pH ABG 7.51 (7.35-7.45)
[2020-11-28 15:59] LABS: Fractionated Inspired Oxygen 28; HCO3 ABG 25 mmol/L (22-26); Oxygen Saturation ABG 95 % (95-100); PO2 ABG 65 mmHg (80-100); TCO2 ABG 26 mmol/L (21-31)
[2020-11-28 16:01] LABS: Procalcitonin 0.21 ng/mL (<0.5)
[2020-11-28] MEDS: ALBUTEROL/IPRATROPIUM 3 ML AMPUL INH (16:01)
[2020-11-28 17:05] LABS: Ferritin 2780 ng/mL (18-464)
--- NOTE | 2020-11-28 17:14 | PC.NURSE ---
PT placed in Aerosolized precautions post nebulizer until 1720, sign posted on door.
[2020-11-28] MEDS: REMDESIVIR 200 MG in SODIUM CHLORIDE 0.9% 210 ML 250 ML IV (17:26)
--- NOTE | 2020-11-28 19:45 | P.HP_ITS ---
History of Present Illness History of Present Illness Date Patient Seen: 11/28/20 Time Patient Seen: 19:45 Chief complaint: very weak and aches all over Narrative: Patient is a 75-year-old male Kenton Riojas presented to the ED with chief complaint of intense weakness and his fatigue over the last 3 weeks, which has worsed over the last few days. He reports that he had contact with his neighbor who recently tested positive for COVID. He is non vaccinated for C OVID. He had an episode of chest pain 3 weeks ago and is scheduled for angiography next Thursday at [facility]. Upon admit he denies chest pain, but continues to be SOB unchanged with 5L/NC at this time. Patient is relaxed, and demonstrates no work of breathing, though only answers questions in small 3-4 word bursts. He reports a decreased appetite, all over body aches, and significant fatigue. Patient reports that he normally walks frequesntly but has been unable to do so starting 3 weeks ago. Patient denies fever, chills, nausea, abdominal pain, vomiting, diarrhea, constipation, urinary symptoms urgency frequency dysuria, hematuria, melena or hemtaemesis, rashes, injurt, infection, or trauma. Patient states that he has no cardiac or respiratory conditions but did smoke for approximately 30 years and quit in 1989. Patient only reports history of hypertension which no longer requires treatment and 2 occurrences of prostate cancer the last being 2015 resulting in subsequent BPH which he treats with Flomax and Cialis. Patient's vitals upon admit are stable temp 97.8?, BP 139/71, HR 71, R 20, O2 saturation 93% on 5 L nasal cannula. Patient's demonstrates respiratory alkalosis for ABGs pH 7.51, pCO2 31.4, PO2 65. Patient does have a decreased HGB 13.1, HCT 38.1, MCV is normal, platelets 128 (11/01/20-207), neutrophils within normal limits, ferritin 2780, lactate D 3368. Mild hyponatremia with sodium 129, chloride 97, BUN 24, glucose 129, creatinine and GFR are within normal limits, proBNP within normal limits, total protein 6.2, albumin 3.3, procalcitonin 0.21 within normal limits. Patient's chest x-ray demonstrated patchy bilateral pulmonary opacities suggestive of pneumonia unable to rule out edema and or atelectasis. No EKG found in ED chart note nor cardio observer helper to review. Patient given loading doses of remdesivir and dexamethasone in ED. Patient admitted with acute respiratory alkalosis failure with hypoxia, due to COVID pneumonia, with mild hyponatremia. Patient History Medical History (Updated 11/28/20 @ 21:10 by SAMANTHA Lozano) BPH (benign prostatic hyperplasia) Hypertension Prostate cancer Surgical History (Updated 11/28/20 @ 21:10 by SAMANTHA Lozano) History of bunionectomy History of shoulder surgery Family & Social History Family History (Updated 11/28/20 @ 21:11 by SAMANTHA Lozano) Mother Dementia Father Heart disease Safety & Behavioral: Feels Safe in Current Yes, patient is retired lives alone but has a partner close by. Environment Tobacco & Substance use: Smoking Status Former smoker times 30 years quit in 1989 alcohol intake frequency patient reports 3-4 drinks several times a week Substance Use Type does not use Meds Home Medications and Allergies Home Medications Medication Instructions Recorded Confirmed Type tadalafil 5 mg tablet 5 mg PO DAILY 11/28/20 11/28/20 History tamsulosin 0.4 mg capsule 0.4 mg PO DAILY 11/28/20 11/28/20 History Allergies Allergy/AdvReac Type Severity Reaction Status Date / Time lisinopril [From PRINIVIL] Allergy Intermediate HYPERACTIVI Verified 11/28/20 15:00 TY Review of Systems Review of Systems Narrative: All 12 point systems reviewed with the patient and are negative except otherwise documented. Exam Vital Signs (past 8 hours): - 11/28/20 14:52 11/28/20 14:56 11/28/20 15:00 Temperature 97.8 F Pulse Rate 76 78 77 Respiratory Rate 20 15 23 Blood Pressure 133/72 112/65 Pulse Oximetry 85 L 94 96 11/28/20 15:30 11/28/20 16:00 11/28/20 16:11 Temperature Pulse Rate 79 75 86 Respiratory Rate 28 H 32 H 16 Blood Pressure 119/65 122/69 Pulse Oximetry 92 93 93 11/28/20 16:30 11/28/20 17:00 11/28/20 17:30 Temperature Pulse Rate 74 75 73 Respiratory Rate 24 Blood Pressure 120/60 134/65 Pulse Oximetry 94 94 93 11/28/20 17:31 11/28/20 18:00 11/28/20 18:01 Temperature Pulse Rate 74 75 75 Respiratory Rate 20 Blood Pressure 123/59 L 161/81 H Pulse Oximetry 93 93 94 11/28/20 18:30 11/28/20 18:31 11/28/20 18:53 Temperature Pulse Rate 68 69 76 Respiratory Rate Blood Pressure 155/117 H 163/76 H Pulse Oximetry 95 94 89 L 11/28/20 19:00 Temperature Pulse Rate 71 Respiratory Rate Blood Pressure 139/71 Pulse Oximetry 93 Oxygen Delivery Method Nasal Cannula Oxygen Flow Rate 4 Narrative Exam Narrative: General: Patient is a well-developed, well-nourished male in no distress at this time. HEENT: Normocephalic, atraumatic, extraocular muscles intact, oral pharynx is clear and mucous membranes are dry. Neck is supple and symmetric, trachea is midline, no adenopathy, no thyroid enlargement, nontender, no masses palpated. Negative for JVD Chest: Normal AP diameter and contour without kyphoscoliosis, no nasal flaring, retractions, or tachypneic labored Lungs: Auscultation of all lung guzmán decreased breath sounds in bilateral upper lobes over lower lobes, without adventitious sounds, poor air exchange, shallow breathing, NO work of breathing noted. Cardio: regular rate and rhythm without murmur, rubs, or gallops, no carotid bruit, no cardiac pulsations present. Abdomen: Soft nontender, negative for organomegaly, or masses. Bowel sounds are present in all 4 quadrants without guarding or rebound, no CVA tenderness. Musculoskeletal: Muscle strength and tone are equal within normal limits, no deformity, crepitus, effusions, cyanosis, clubbing or edema present. Full range of motion intact radial and pedal pulses are normal. Patient's lower legs and ankles were negative for any edema and in greater fitness than for stated age Skin: Warm dry and intact without rashes, ulcerations or petechiae. Neuro: Alert and orientated x3, strength is +5/5 in all extremities, sensation to touch intact, no gross deficits noted of cranial nerves. Psych: Patient has a well-kept appearance, appropriate affect, mental status attitude thought context and judgment are appropriate for age. Objective Labs Result Diagrams: 11/28/20 15:00 11/28/20 15:00 Labs: Laboratory Results - last 24 hr 11/28/20 11/28/20 11/28/20 14:50 15:00 15:00 WBC 4.8 RBC 4.57 Hgb 13.1 L Hct 38.1 L MCV 83.5 MCH 28.7 MCHC 34.4 RDW 15.4 H Plt Count 128 L Neut % (Auto) 74.9 Lymph % (Auto) 15.3 L [place] % (Auto) 9.1 Eos % (Auto) 0.0 L Baso % (Auto) 0.7 Neut # (Auto) 3600 Lymph # (Auto) 700 L [place] # (Auto) 400 Eos # (Auto) 0 Baso # (Auto) 0 ABG pH ABG pCO2 ABG pO2 ABG HCO3 ABG Total CO2 ABG O2 Saturation ABG Base Excess FiO2 Sodium 129 L Potassium 3.5 Chloride 97 L Carbon Dioxide 25 BUN 24 H Creatinine 1.17 Estimated GFR > 60.0 BUN/Creatinine Ratio 20.5 Glucose 129 H Lactate Calcium 7.9 L Ferritin Total Bilirubin 1.1 AST 297 H ALT 132 H Alkaline Phosphatase 57 Lactate Dehydrogenase NT-Pro-B Natriuret Pep Total Protein 6.2 L Albumin 3.3 L Globulin 2.9 Albumin/Globulin Ratio 1.1 Procalcitonin SARS-CoV-2 (PCR) Positive H 11/28/20 11/28/20 11/28/20 15:00 15:00 15:00 WBC RBC Hgb Hct MCV MCH MCHC RDW Plt Count Neut % (Auto) Lymph % (Auto) [place] % (Auto) Eos % (Auto) Baso % (Auto) Neut # (Auto) Lymph # (Auto) [place] # (Auto) Eos # (Auto) Baso # (Auto) ABG pH ABG pCO2 ABG pO2 ABG HCO3 ABG Total CO2 ABG O2 Saturation ABG Base Excess FiO2 Sodium Potassium Chloride Carbon Dioxide BUN Creatinine Estimated GFR BUN/Creatinine Ratio Glucose Lactate 1.6 Calcium Ferritin 2780 H Total Bilirubin AST ALT Alkaline Phosphatase Lactate Dehydrogenase 3368 H NT-Pro-B Natriuret Pep 342 Total Protein Albumin Globulin Albumin/Globulin Ratio Procalcitonin 0.21 SARS-CoV-2 (PCR) 11/28/20 15:50 WBC RBC Hgb Hct MCV MCH MCHC RDW Plt Count Neut % (Auto) Lymph % (Auto) [place] % (Auto) Eos % (Auto) Baso % (Auto) Neut # (Auto) Lymph # (Auto) [place] # (Auto) Eos # (Auto) Baso # (Auto) ABG pH 7.51 H ABG pCO2 31.4 L ABG pO2 65 L ABG HCO3 25 ABG Total CO2 26 ABG O2 Saturation 95 ABG Base Excess 2.0 FiO2 28 Sodium Potassium Chloride Carbon Dioxide BUN Creatinine Estimated GFR BUN/Creatinine Ratio Glucose Lactate Calcium Ferritin Total Bilirubin AST ALT Alkaline Phosphatase Lactate Dehydrogenase NT-Pro-B Natriuret Pep Total Protein Albumin Globulin Albumin/Globulin Ratio Procalcitonin SARS-CoV-2 (PCR) Assessment & Plan Assessment & Plan narrative: Patient is a 75 yr old male with a history of hypertension, prostate cancer ( x2), and BPH who was an under vaccinated admitted for acute respiratory alkalosis failure with hypoxia due to COVID pneumonia and mild hyponatremia. 1. Acute respiratory alkalosis failure with hypoxia, due to COVID pneumonia, with mild anemia and sepsis, acute, present on admission -O2 saturation 93% on 5 L nasal cannula -monitor patient for acute FL, ischemic stroke, PE, DVT, venous thrombosis, hyperglycemia an increased risk of bacterial infections, fungal and strongyloides -vital signs on admission: temp 97.8?, BP 139/71, HR 71, RR 20, O2 saturation 93% on 5 L nasal cannula. ABGs: pH 7.51, pCO2 31.4, PO2 65. HGB 13.1, HCT 38.1, MCV is normal, platelets 128 (11/01/20-207), ferritin 2780, lactate D 3368. sodium 129, chloride 97, BUN 24, glucose 129, total protein 6.2, albumin 3.3, chest x-ray: demonstrated patchy bilateral pulmonary opacities suggestive of pneumonia unable to rule out edema and or atelectasis. -SOFA score 3, blood cultures pending -patient to be monitored on tele medicine, vital signs q.4 hours, intake and output monitored Q shift, weight measure daily, diet: Heart Healthy -Supplemental NC -maintain SaO2 88-92%, check peak flow expiratory flow q.day 1- 2 days. -medications ordered: Remdesivir 100 mg p.o. q.day & dexamethasone 6 mg QD x 10 days or until D/C per coronavirus infectious disease is modify March 2020 treatment guidelines per up-to-date. Recommend proning regularly (pain medication to facilitate proning), Start BARICITINIB if patient goes onto high flow. -albuterol HFA inhaler 2 puffs every 4-6 hours as needed cough or shortness of breath, LMW heparin 5000 units BID -labs: PT/PTT recommended for every other day, troponin 48 hour repeat, D-dimer, lactate repeat in a.m., CBC and CMP daily -avoiding nebulizer aerosol treatments, if signs and symptoms are worsening order chest x-ray and echo -consults ordered: respiratory therapy. -prevention vaccine: Recommend yearly flu vaccine, shingles, pneumonia, COVID vaccines. 2. Hyponatremia mild, acute, present on admission -sodium 129 -gentle rehydration for hyponatremia-NS at 60 cc/HR 3. BPH, secondary to prostate cancer, chronic, present on admission Continue patient's Cialis and Flomax 4. Obesity as evidence by BMI of 33, acute on chronic, present on admission. -consideration will be given for dietary counseling. Code status: Full code Surrogate decision maker: Shell Ny -partner COVID PCR: Positive COVID vaccination: Unvaccinated VTE/DVT prophylaxis: LMW heparin 5000 units and SCDs Estimated length of stay: greater than 2 midnights temp 97.8?, BP 139/71, HR 71, RR 20, O2 saturation 93% on 5 L nasal cannula. ABGs: pH 7.51, pCO2 31.4, PO2 65. HGB 13.1, HCT 38.1, MCV is normal, platelets 128 (11/01/20-207), ferritin 2780, lactate D 3368. Mild hyponatremia with sodium 129, chloride 97, BUN 24, glucose 129, creatinine and GFR are within normal limits, proBNP within normal limits, total protein 6.2, albumin 3.3, procal citonin 0.21 within normal limits. Patient's chest x-ray demonstrated patchy bilateral pulmonary opacities suggestive of pneumonia unable to rule out edema and or atelectasis. No EKG found in ED chart note nor cardio observer helper to review. Patient given loading doses of remdesivir and dexamethasone in ED. Patient admitted with acute respiratory alkalosis failure with hypoxia, due to COVID pneumonia, with mild hyponatremia. Scores GCS Tash coma scale eye opening: Spontaneous Tash coma scale verbal response: Orientated Tash coma scale motor response: Obey commands [place] coma scale total score: 15 SOFA PaO2/FIO2: < 300 mmHg Platelets: < 150 Bilirubin: < 1.2 mg/dL Hypotension: MAP >= 70 mmHg [place] Coma Scale: 15 Renal: < 1.2 mg/dL SOFA Score: 3 Wells' Criteria for PE Clinical signs and symptoms of DVT: No PE is #1 Dx or equally likely: No Heart rate > 100: No Immobilization at least 3 days or surg in previous 4 weeks: Yes History of PE or DVT: No Hemoptysis: No Malignancy w/Treatment within 6 months or palliative: No Wells' PE Score total: 1.5 Quality MIPS - Admit I confirm the patient?s Advance Care Plan is present, Code status is documented, Surrogate decision maker is in patient?s record [If Yes, STOP here]: Yes
[2020-11-28 20:16] LABS: Magnesium 2.3 mg/dL (1.6-2.3)
[2020-11-28] MEDS: HEPARIN 5,000 UNIT/ML VIAL 5000 UNIT SUBCUT (21:36)
[2020-11-28] MEDS: SODIUM CHLORIDE 0.9% 1,000 ML 60 ML IV (22:12)
[2020-11-28 22:20] LABS: Troponin I 0.168 ng/mL (0.01-0.034)
--- NOTE | 2020-11-28 22:43 | PC.NURSE ---
Rin from lab called at 2219 with a critical lab reading Troponin I 0.168. JOSSELIN Holguin, was notified at 2220 and verbal orders were given for a STAT EKG. RT was notified at 2221 and the EKG was done. EKG results were given to JOSSELIN Holguin, at 2239. No other orders given at this time.
--- NOTE | 2020-11-28 22:58 | PC.ADMIT ---
[address] Admission Note: Patient arrived at 1930 via bed from the ED. Patient was on 5L NC at time of arrival with O2 reading of 93%. Patients belongings were placed in the closet in the room and patient was oriented to room, call light, and fall precautions. Patient denied any pain and stated that breathing is better with O2 on. Bed was left in lowest position, no other requests at this time. The patient,Kenton Riojas,75 y/o, was given written information regarding hospital policies, unit procedures and contact persons. Patient's smoking status: Former smoker. Vital Signs - 8 hr 11/28/20 15:00 11/28/20 15:30 11/28/20 16:00 Temperature Pulse Rate 77 79 75 Respiratory Rate 23 28 H 32 H Blood Pressure 112/65 119/65 122/69 Pulse Oximetry 96 92 93 11/28/20 16:11 11/28/20 16:30 11/28/20 17:00 Temperature Pulse Rate 86 74 75 Respiratory Rate 16 24 Blood Pressure 120/60 134/65 Pulse Oximetry 93 94 94 11/28/20 17:30 11/28/20 17:31 11/28/20 18:00 Temperature Pulse Rate 73 74 75 Respiratory Rate 20 Blood Pressure 123/59 L Pulse Oximetry 93 93 93 11/28/20 18:01 11/28/20 18:30 11/28/20 18:31 Temperature Pulse Rate 75 68 69 Respiratory Rate Blood Pressure 161/81 H 155/117 H Pulse Oximetry 94 95 94 11/28/20 18:53 11/28/20 19:00 11/28/20 19:30 Temperature 97.5 F L Pulse Rate 76 71 83 Respiratory Rate 24 Blood Pressure 163/76 H 139/71 144/79 H Pulse Oximetry 89 L 93 92 11/28/20 19:37 Temperature Pulse Rate Respiratory Rate Blood Pressure Pulse Oximetry 93
[2020-11-29] VITALS (20 sets, daily range): BP systolic 93–139; BP diastolic 57–66; PULSE 62–74; RESP 12–36; TEMP 31.2–36.5; O2SAT 89–96
[2020-11-29 00:26] LABS: Troponin I 0.141 ng/mL (0.01-0.034)
[2020-11-29 00:34] LABS: D Dimer 695 ng/mL (<230)
[2020-11-29 06:15] LABS: Add Manual Diff / Slide Review NO; Basophils Absolute Auto 0 /uL (0-100); Basophils Percent Auto 0.3 % (0-2); Eosinophils Absolute Auto 0 /uL (0-450); Hematocrit 36.1 % (41-53); Hemoglobin 12.5 g/dL (13.5-17.5); Lymphocytes Absolute Auto 500 /uL (1100-4500); Mean Corpuscular HGB Conc 34.6 % (30-36); Mean Corpuscular Hemoglobin 28.9 PG (26-34); Mean Corpuscular Volume 83.7 fL (80-100); Monocytes Absolute Auto 400 /uL (0-900); Monocytes Percent Auto 7.3 % (3-14); Neutrophils Absolute Auto 4100 /uL (1500-7000); Neutrophils Percent Auto 81.4 % (50-75); Platelet Count 134 X10^3/uL (150-400); Red Blood Cell Count 4.31 X10^6/uL (4.5-5.9); Red Cell Distribution Width 15.3 % (11.6-14.8)
[2020-11-29 06:18] LABS: INR 1.3 (0.9-1.3); Prothrombin Time 14.8 SECONDS (10.1-12.7)
[2020-11-29 06:21] LABS: PTT Partial Thromboplastin Tim 29 SECONDS (26.4-36.2)
[2020-11-29 06:24] LABS: Alanine Aminotransferase 131 IU/L (<50); Albumin 3.1 g/dL (3.5-5.0); Albumin Globulin Ratio 1.1 (1.0-2.8); Alkaline Phosphatase 58 U/L (38-126); Aspartate Aminotransferase 253 IU/L (17-59); BUN Creatinine Ratio 27.5 (6-22); Bilirubin Total 0.8 mg/dL (0.2-1.3); Blood Urea Nitrogen 28 mg/dL (9-20); Calcium 7.5 mg/dL (8.4-10.2); Carbon Dioxide 27 mmol/L (22-32); Chloride 99 mmol/L (98-107); Estimated Glomerular Filt Rate > 60.0 mL/min (>60); Globulin 2.8 g/dL (1.7-4.1); Glucose 149 mg/dL (80-110); HEMOLYSIS < 15 (0-50); Potassium 3.5 mmol/L (3.4-5.1); Sodium 134 mmol/L (137-145); Total Protein 5.9 g/dL (6.3-8.2)
[2020-11-29 06:32] LABS: NT-proBNP (BNP-Adult 18+) 338 pg/mL (<450)
[2020-11-29 06:41] LABS: Procalcitonin 0.17 ng/mL (<0.5)
[2020-11-29 06:42] LABS: Troponin I 0.127 ng/mL (0.01-0.034)
[2020-11-29] MEDS: dexAMETHasone 1 MG TABLET 6 MG PO (09:36)
[2020-11-29] MEDS: BARICITINIB 2 MG TABLET 4 MG PO (09:36)
[2020-11-29] MEDS: TAMSULOSIN 0.4 MG CAPSULE PO (09:37)
[2020-11-29] MEDS: HEPARIN 5,000 UNIT/ML VIAL 5000 UNIT SUBCUT (09:38)
[2020-11-29 10:01] LABS: Fractionated Inspired Oxygen 100; HCO3 ABG 23 mmol/L (22-26); Oxygen Saturation ABG 93 % (95-100); PCO2 ABG 30.5 mmHg (35-45); PO2 ABG 61 mmHg (80-100); TCO2 ABG 24 mmol/L (21-31); pH ABG 7.49 (7.35-7.45)
--- NOTE | 2020-11-29 10:59 | PC.NURSE ---
Day shift: Pt moved to room 228 at approx 1015. He has all personal belongings. He needs heated HF O2. Dr Caputo, RT, [employer] aDvid, and discharge rn all aware. Report given to David as well. On HF O2 NC Pt sats at approx 90%. ABD done by RT and the printout in in Pt's chart. Pharmacy notified as well.
--- NOTE | 2020-11-29 12:14 | PC.NURSE ---
Assisting with patient in ICU, evaluated patient with Dr. Caputo at bedside. Patient was laying on his back 84-90% spo2 on Heated hi flow settings per RT (50L, 83% Fio2). Patient states he is not feeling short of breath, and denies chest pain. Education on proning up to 18 hours per 24 hour period re-inforced. Patient assisted into proning position, with spo2 up to 89-95%. RT notified. Continue to monitor closely. Bed alarm on, urinal and call light within reach.
--- NOTE | 2020-11-29 12:48 | PC.NURSE ---
Reviewed Oxygen escalation protocol and checked in with Dr. Caputo regarding follow up ABG orders and intermittent desaturation with activity. Patient's JOSEY score 3.3. No new orders obtained. RT continues to follow HHFNC titration.
[2020-11-29] MEDS: ENOXAPARIN 40 MG/0.4 ML SYRINGE SUBCUT (14:13)
--- NOTE | 2020-11-29 14:48 | PM.PN.1 ---
Subjective Subjective Interval history: The Patient is a 75 y/o male admitted for acute hypoxic respiratory failure secondary to Covid-19 Pneumonia . Patient remains markedly hypoxic and desaturates with minimal activity Exam Vital Signs (past 8 hours): - 11/29/20 08:25 11/29/20 08:29 11/29/20 10:06 Temperature 97.6 F Pulse Rate 65 68 Respiratory Rate 22 20 Blood Pressure 93/57 L Pulse Oximetry 91 92 90 L 11/29/20 10:40 11/29/20 12:00 Temperature 96.2 F L Pulse Rate 69 69 Respiratory Rate 24 26 H Blood Pressure 129/66 130/66 Pulse Oximetry 93 Oxygen Delivery Method High Flow Nasal Cannula Oxygen Flow Rate 11 Narrative Exam Narrative: Ill-appearing elderly male lying in bed HENNM Other: Normocephalic atraumatic, extraocular muscles are intact, sclerae anicteric Resp Other: Lungs decreased breath sounds bilaterally Cardio Other: Cardiac exam: Regular rate and rhythm normal S1-S2 GI Other: Abdomen: Soft nontender nondistended Extrem Other: Extremities: No edema Objective Labs Result Diagrams: 11/29/20 05:53 11/29/20 05:53 Labs: Laboratory Results - last 24 hr 11/28/20 11/28/20 11/28/20 14:50 15:00 15:00 WBC 4.8 RBC 4.57 Hgb 13.1 L Hct 38.1 L MCV 83.5 MCH 28.7 MCHC 34.4 RDW 15.4 H Plt Count 128 L Neut % (Auto) 74.9 Lymph % (Auto) 15.3 L [place] % (Auto) 9.1 Eos % (Auto) 0.0 L Baso % (Auto) 0.7 Neut # (Auto) 3600 Lymph # (Auto) 700 L [place] # (Auto) 400 Eos # (Auto) 0 Baso # (Auto) 0 PT INR APTT D-Dimer ABG pH ABG pCO2 ABG pO2 ABG HCO3 ABG Total CO2 ABG O2 Saturation ABG Base Excess FiO2 Sodium 129 L Potassium 3.5 Chloride 97 L Carbon Dioxide 25 BUN 24 H Creatinine 1.17 Estimated GFR > 60.0 BUN/Creatinine Ratio 20.5 Glucose 129 H Lactate Calcium 7.9 L Magnesium Ferritin Total Bilirubin 1.1 AST 297 H ALT 132 H Alkaline Phosphatase 57 Lactate Dehydrogenase Troponin I NT-Pro-B Natriuret Pep Total Protein 6.2 L Albumin 3.3 L Globulin 2.9 Albumin/Globulin Ratio 1.1 Procalcitonin SARS-CoV-2 (PCR) Positive H 11/28/20 11/28/20 11/28/20 15:00 15:00 15:00 WBC RBC Hgb Hct MCV MCH MCHC RDW Plt Count Neut % (Auto) Lymph % (Auto) [place] % (Auto) Eos % (Auto) Baso % (Auto) Neut # (Auto) Lymph # (Auto) [place] # (Auto) Eos # (Auto) Baso # (Auto) PT INR APTT D-Dimer ABG pH ABG pCO2 ABG pO2 ABG HCO3 ABG Total CO2 ABG O2 Saturation ABG Base Excess FiO2 Sodium Potassium Chloride Carbon Dioxide BUN Creatinine Estimated GFR BUN/Creatinine Ratio Glucose Lactate 1.6 Calcium Magnesium Ferritin 2780 H Total Bilirubin AST ALT Alkaline Phosphatase Lactate Dehydrogenase 3368 H Troponin I NT-Pro-B Natriuret Pep 342 Total Protein Albumin Globulin Albumin/Globulin Ratio Procalcitonin 0.21 SARS-CoV-2 (PCR) 11/28/20 11/28/20 11/28/20 15:33 15:50 21:31 WBC RBC Hgb Hct MCV MCH MCHC RDW Plt Count Neut % (Auto) Lymph % (Auto) [place] % (Auto) Eos % (Auto) Baso % (Auto) Neut # (Auto) Lymph # (Auto) [place] # (Auto) Eos # (Auto) Baso # (Auto) PT INR APTT D-Dimer ABG pH 7.51 H ABG pCO2 31.4 L ABG pO2 65 L ABG HCO3 25 ABG Total CO2 26 ABG O2 Saturation 95 ABG Base Excess 2.0 FiO2 28 Sodium Potassium Chloride Carbon Dioxide BUN Creatinine Estimated GFR BUN/Creatinine Ratio Glucose Lactate Calcium Magnesium 2.3 Ferritin Total Bilirubin AST ALT Alkaline Phosphatase Lactate Dehydrogenase Troponin I 0.168 H* NT-Pro-B Natriuret Pep Total Protein Albumin Globulin Albumin/Globulin Ratio Procalcitonin SARS-CoV-2 (PCR) 11/28/20 11/28/20 11/29/20 23:41 23:41 05:53 WBC 5.0 RBC 4.31 L Hgb 12.5 L Hct 36.1 L MCV 83.7 MCH 28.9 MCHC 34.6 RDW 15.3 H Plt Count 134 L Neut % (Auto) 81.4 H Lymph % (Auto) 11.0 L [place] % (Auto) 7.3 Eos % (Auto) 0.0 L Baso % (Auto) 0.3 Neut # (Auto) 4100 Lymph # (Auto) 500 L [place] # (Auto) 400 Eos # (Auto) 0 Baso # (Auto) 0 PT INR APTT D-Dimer 695 H ABG pH ABG pCO2 ABG pO2 ABG HCO3 ABG Total CO2 ABG O2 Saturation ABG Base Excess FiO2 Sodium Potassium Chloride Carbon Dioxide BUN Creatinine Estimated GFR BUN/Creatinine Ratio Glucose Lactate Calcium Magnesium Ferritin Total Bilirubin AST ALT Alkaline Phosphatase Lactate Dehydrogenase Troponin I 0.141 H* NT-Pro-B Natriuret Pep Total Protein Albumin Globulin Albumin/Globulin Ratio Procalcitonin SARS-CoV-2 (PCR) 11/29/20 11/29/20 11/29/20 05:53 05:53 05:53 WBC RBC Hgb Hct MCV MCH MCHC RDW Plt Count Neut % (Auto) Lymph % (Auto) [place] % (Auto) Eos % (Auto) Baso % (Auto) Neut # (Auto) Lymph # (Auto) [place] # (Auto) Eos # (Auto) Baso # (Auto) PT 14.8 H INR 1.3 APTT D-Dimer ABG pH ABG pCO2 ABG pO2 ABG HCO3 ABG Total CO2 ABG O2 Saturation ABG Base Excess FiO2 Sodium 134 L Potassium 3.5 Chloride 99 Carbon Dioxide 27 BUN 28 H Creatinine 1.02 Estimated GFR > 60.0 BUN/Creatinine Ratio 27.5 H Glucose 149 H Lactate Calcium 7.5 L Magnesium Ferritin Total Bilirubin 0.8 AST 253 H ALT 131 H Alkaline Phosphatase 58 Lactate Dehydrogenase Troponin I 0.127 H* NT-Pro-B Natriuret Pep 338 Total Protein 5.9 L Albumin 3.1 L Globulin 2.8 Albumin/Globulin Ratio 1.1 Procalcitonin 0.17 SARS-CoV-2 (PCR) 11/29/20 11/29/20 05:53 09:40 WBC RBC Hgb Hct MCV MCH MCHC RDW Plt Count Neut % (Auto) Lymph % (Auto) [place] % (Auto) Eos % (Auto) Baso % (Auto) Neut # (Auto) Lymph # (Auto) [place] # (Auto) Eos # (Auto) Baso # (Auto) PT INR APTT 29 D-Dimer ABG pH 7.49 H ABG pCO2 30.5 L ABG pO2 61 L ABG HCO3 23 ABG Total CO2 24 ABG O2 Saturation 93 L ABG Base Excess 0.0 FiO2 100 Sodium Potassium Chloride Carbon Dioxide BUN Creatinine Estimated GFR BUN/Creatinine Ratio Glucose Lactate Calcium Magnesium Ferritin Total Bilirubin AST ALT Alkaline Phosphatase Lactate Dehydrogenase Troponin I NT-Pro-B Natriuret Pep Total Protein Albumin Globulin Albumin/Globulin Ratio Procalcitonin SARS-CoV-2 (PCR) [facility] Medical History (Updated 11/28/20 @ 21:10 by ANJU Lozano-MARIIA) BPH (benign prostatic hyperplasia) Hypertension Prostate cancer Surgical History (Updated 11/28/20 @ 21:10 by SAMANTHA Lozano) History of bunionectomy History of shoulder surgery Family History (Updated 11/28/20 @ 21:11 by SAMANTHA Lozano) Mother Dementia Father Heart disease Social History household members: none Smoking Status: Former smoker Assessment & Plan Assessment & Plan narrative: Acute respiratory alkalosis failure with hypoxia, due to COVID pneumonia, with mild anemia and sepsis, acute, present on admission -75-year-old male admitted to the hospital with acute respiratory failure secondary to COVID pneumonia -patient continues to be markedly hypoxic, he is now on high-flow oxygen at 55 L with an FiO2 of 80% -patient is attempting to self prone -given his high degree of hypoxemia patient will be given a trial of CPAP in order to decrease his FiO2 -he will continue on remdesivir, Decadron, and baracitinib -will taper oxygen as he tolerated -DVT prophylaxis for COVID 2. Hyponatremia mild, acute, present on admission -sodium 129 -IV fluids held given his severe hypoxemia and acute respiratory failure secondary to COVID pneumonia -will follow his serum sodium closely 3. BPH, secondary to prostate cancer, chronic, present on admission Continue patient's Cialis and Flomax 4. Obesity as evidence by BMI of 33, acute on chronic, present on admission. -consideration will be given for dietary counseling. 5. Elevated troponin/demand ischemia -initial troponin 0.041, 0.141, now 0.121 -patient with no complaints of chest pain -will continue to monitor closely 6. Hyperglycemia -likely related to steroid -will check blood sugars and start sliding scale insulin as needed
[2020-11-29] MEDS: INSULIN LISPRO 100 UNIT/ML 3ML VIAL SUBCUT ×2 (16:55→20:06)
[2020-11-29] MEDS: REMDESIVIR 100 MG in SODIUM CHLORIDE 0.9% 230 ML 250 ML IV (16:56)
[2020-11-29] MEDS: SODIUM CHLORIDE 0.9% 250 ML 21 ML IV (16:57)
[2020-11-29] MEDS: SODIUM CHLORIDE 0.9% FLUSH 10 ML IV (20:02)
[2020-11-30] VITALS (22 sets, daily range): BP systolic 103–158; BP diastolic 57–80; PULSE 58–83; RESP 15–31; TEMP 30.9–37.1; O2SAT 87–96
[2020-11-30 05:11] LABS: INR 1.3 (0.9-1.3); Prothrombin Time 14.4 SECONDS (10.1-12.7)
[2020-11-30 05:13] LABS: Add Manual Diff / Slide Review NO; Basophils Absolute Auto 0 /uL (0-100); Basophils Percent Auto 0.3 % (0-2); Eosinophils Absolute Auto 0 /uL (0-450); Hemoglobin 13.4 g/dL (13.5-17.5); Lymphocytes Absolute Auto 1200 /uL (1100-4500); Lymphocytes Percent Auto 11.9 % (25-40); Mean Corpuscular HGB Conc 34.3 % (30-36); Mean Corpuscular Volume 84.7 fL (80-100); Monocytes Absolute Auto 800 /uL (0-900); Monocytes Percent Auto 7.6 % (3-14); Neutrophils Absolute Auto 8100 /uL (1500-7000); Neutrophils Percent Auto 80.2 % (50-75); Platelet Count 177 X10^3/uL (150-400); Red Cell Distribution Width 15.1 % (11.6-14.8); White Blood Cell Count 10.1 X10^3/uL (4.5-11.0)
[2020-11-30 05:16] LABS: Alanine Aminotransferase 116 IU/L (<50); Albumin 3.4 g/dL (3.5-5.0); Albumin Globulin Ratio 1.2 (1.0-2.8); Alkaline Phosphatase 60 U/L (38-126); Aspartate Aminotransferase 173 IU/L (17-59); BUN Creatinine Ratio 33.3 (6-22); Bilirubin Total 0.8 mg/dL (0.2-1.3); Blood Urea Nitrogen 31 mg/dL (9-20); Calcium 8.1 mg/dL (8.4-10.2); Carbon Dioxide 28 mmol/L (22-32); Chloride 99 mmol/L (98-107); Estimated Glomerular Filt Rate > 60.0 mL/min (>60); Globulin 2.8 g/dL (1.7-4.1); Glucose 151 mg/dL (80-110); HEMOLYSIS < 15 (0-50); Potassium 3.9 mmol/L (3.4-5.1); Sodium 135 mmol/L (137-145); Total Protein 6.2 g/dL (6.3-8.2)
[2020-11-30] MEDS: BARICITINIB 2 MG TABLET 4 MG PO (11:02)
[2020-11-30] MEDS: TAMSULOSIN 0.4 MG CAPSULE PO (11:03)
[2020-11-30] MEDS: dexAMETHasone 1 MG TABLET 6 MG PO (11:03)
[2020-11-30] MEDS: ENOXAPARIN 40 MG/0.4 ML SYRINGE SUBCUT (11:04)
--- NOTE | 2020-11-30 13:22 | PC.NURSE ---
Am shift Pt is not tolerating proning well, rec'd orders for ativan, side laying is the best that he can tolerate. HHFnc@ 50L 70% Fio2 weaned down to 60% Fio2 throughout the shift. Lungs are coarse and dim with desat with any bed monility. Stafford draining clear pink tinged urine.
--- NOTE | 2020-11-30 13:33 | PM.PN.1 ---
Subjective Subjective Interval history: The patient is a unvaccinated 75-year-old male admitted to the hospital with acute respiratory failure secondary to COVID pneumonia. Patient continues to be hypoxic requiring high-flow oxygen to maintain saturation greater than 90%. He reports decreased appetite, however his cough has improved Exam Vital Signs (past 8 hours): - 11/30/20 06:00 11/30/20 06:23 11/30/20 08:00 Temperature 97.5 F L Pulse Rate 72 Respiratory Rate 22 Blood Pressure 133/63 152/80 H Pulse Oximetry 94 93 11/30/20 08:50 11/30/20 10:00 11/30/20 10:16 Temperature Pulse Rate 69 63 Respiratory Rate 20 18 Blood Pressure 158/80 H 152/80 H Pulse Oximetry 93 89 L 95 11/30/20 11:47 11/30/20 12:00 Temperature 96.5 F L Pulse Rate 74 79 Respiratory Rate 19 19 Blood Pressure 134/60 134/60 Pulse Oximetry 94 88 L Fraction of Inspired Oxygen 0.72 Oxygen Delivery Method Heated High Flow Oxygen Flow Rate 50 Narrative Exam Narrative: Elderly male lying in bed Resp Other: Decreased breath sounds with scattered crackles bilaterally Cardio Other: Regular rate and rhythm normal S1-S2 with a 2/6 systolic ejection murmur GI Other: Abdomen soft nontender nondistended Extrem Other: No edema Objective Labs Result Diagrams: 11/30/20 04:45 11/30/20 04:45 Labs: Laboratory Results - last 24 hr 11/30/20 11/30/20 11/30/20 04:45 04:45 04:45 WBC 10.1 D RBC 4.60 Hgb 13.4 L Hct 39.0 L MCV 84.7 MCH 29.0 MCHC 34.3 RDW 15.1 H Plt Count 177 Neut % (Auto) 80.2 H Lymph % (Auto) 11.9 L Person % (Auto) 7.6 Eos % (Auto) 0.0 L Baso % (Auto) 0.3 Neut # (Auto) 8100 H Lymph # (Auto) 1200 Person # (Auto) 800 Eos # (Auto) 0 Baso # (Auto) 0 PT 14.4 H INR 1.3 Sodium 135 L Potassium 3.9 Chloride 99 Carbon Dioxide 28 BUN 31 H Creatinine 0.93 Estimated GFR > 60.0 BUN/Creatinine Ratio 33.3 H Glucose 151 H Calcium 8.1 L Total Bilirubin 0.8 AST 173 H ALT 116 H Alkaline Phosphatase 60 Total Protein 6.2 L Albumin 3.4 L Globulin 2.8 Albumin/Globulin Ratio 1.2 PFSH Medical History (Updated 11/28/20 @ 21:10 by ANJU Lozano-MARIIA) BPH (benign prostatic hyperplasia) Hypertension Prostate cancer Surgical History (Updated 11/28/20 @ 21:10 by ANJU Lozano-MARIIA) History of bunionectomy History of shoulder surgery Family History (Updated 11/28/20 @ 21:11 by ANJU Lozano-MARIIA) Mother Dementia Father Heart disease Social History household members: none Smoking Status: Former smoker Assessment & Plan Assessment & Plan narrative: Acute respiratory alkalosis failure with hypoxia, due to COVID pneumonia, with mild anemia and sepsis, acute, present on admission -75-year-old male admitted to the hospital with acute respiratory failure secondary to COVID pneumonia -patient continues to be markedly hypoxic, he is now on high-flow oxygen at 55 L with an FiO2 of 80% -patient is attempting to self prone -given his high degree of hypoxemia patient will be given a trial of CPAP in order to decrease his FiO2 -he will continue on remdesivir, Decadron, and baracitinib -will taper oxygen as he tolerated -DVT prophylaxis for COVID 2. Hyponatremia mild, acute, present on admission -sodium 129 -IV fluids held given his severe hypoxemia and acute respiratory failure secondary to COVID pneumonia -will follow his serum sodium closely -improved, sodium 135 today 3. BPH, secondary to prostate cancer, chronic, present on admission Continue patient's Cialis and Flomax 4. Obesity as evidence by BMI of 33, acute on chronic, present on admission. -consideration will be given for dietary counseling. 5. Elevated troponin/demand ischemia -initial troponin 0.041, 0.141, now 0.121 -patient with no complaints of chest pain -will continue to monitor closely 6. Hyperglycemia -likely related to steroid -will check blood sugars and start sliding scale insulin as needed 7. Elevated LFT's, suspect secondary to infection -Overall improving AST 297, 253, now 173 will continue to follow
[2020-11-30] MEDS: LORazepam 1 MG TABLET PO ×2 (14:05→20:07)
[2020-11-30] MEDS: INSULIN LISPRO 100 UNIT/ML 3ML VIAL SUBCUT ×2 (14:06→16:52)
[2020-11-30] MEDS: CALCIUM CARBONATE 500 MG TAB PO (14:07)
--- NOTE | 2020-11-30 15:33 | CM.DANOTE ---
Patient is a 75 year old male who was admitted on 11/28/20 for Very weak/aches. Pt has [employer] for insurance and his PCP is Walter Gilbert and Asim Koenig. EMR was reviewed. Per MD, pt unvaccinated for COVID and was exposed to COVID+ friend and now admitted for COVID pneumonia. Per MD, pt rapidly went from NC oxygen to requiring heated high flow oxygen and CPAP. Per RN, pt not currently tolerating proning and was given Ativan for side laying and easily fatigues. Pt lives alone in [place] but has sig other nearby. Discharge assessment not completed at this time as pt remains quite SOB and difficulty time conversing. Plan: SW to follow for phone assessment with pt tomorrow towards determining his supports and barriers for discharge. Pt likely here through the week pending progress and oxygen needs. Albertina Martin MSW
[2020-11-30] MEDS: REMDESIVIR 100 MG in SODIUM CHLORIDE 0.9% 230 ML 250 ML IV (17:40)
[2020-11-30] MEDS: HYDROCODONE/ACET 5/325 TABLET 2 TAB PO (20:06)
[2020-11-30] MEDS: SODIUM CHLORIDE 0.9% FLUSH 10 ML IV (21:10)
[2020-12-01] VITALS (21 sets, daily range): BP systolic 131–174; BP diastolic 61–98; PULSE 54–84; RESP 15–33; TEMP 31–36.6; O2SAT 88–100
[2020-12-01 04:47] LABS: Add Manual Diff / Slide Review NO; Basophils Absolute Auto 0 /uL (0-100); Basophils Percent Auto 0.1 % (0-2); Eosinophils Absolute Auto 0 /uL (0-450); Hemoglobin 12.2 g/dL (13.5-17.5); Lymphocytes Absolute Auto 600 /uL (1100-4500); Lymphocytes Percent Auto 6.8 % (25-40); Mean Corpuscular Hemoglobin 29.3 PG (26-34); Mean Corpuscular Volume 83.8 fL (80-100); Monocytes Absolute Auto 500 /uL (0-900); Monocytes Percent Auto 5.5 % (3-14); Neutrophils Absolute Auto 7800 /uL (1500-7000); Neutrophils Percent Auto 87.6 % (50-75); Platelet Count 192 X10^3/uL (150-400); Red Blood Cell Count 4.17 X10^6/uL (4.5-5.9); Red Cell Distribution Width 14.9 % (11.6-14.8); White Blood Cell Count 8.9 X10^3/uL (4.5-11.0)
[2020-12-01 04:52] LABS: INR 1.3 (0.9-1.3); Prothrombin Time 14.5 SECONDS (10.1-12.7)
[2020-12-01 05:11] LABS: Alanine Aminotransferase 89 IU/L (<50); Albumin 2.9 g/dL (3.5-5.0); Albumin Globulin Ratio 1.1 (1.0-2.8); Alkaline Phosphatase 57 U/L (38-126); Aspartate Aminotransferase 100 IU/L (17-59); BUN Creatinine Ratio 31.3 (6-22); Bilirubin Total 0.7 mg/dL (0.2-1.3); Blood Urea Nitrogen 26 mg/dL (9-20); Calcium 7.6 mg/dL (8.4-10.2); Carbon Dioxide 30 mmol/L (22-32); Chloride 99 mmol/L (98-107); Estimated Glomerular Filt Rate > 60.0 mL/min (>60); Globulin 2.6 g/dL (1.7-4.1); Glucose 135 mg/dL (80-110); HEMOLYSIS < 15 (0-50); Potassium 3.8 mmol/L (3.4-5.1); Sodium 132 mmol/L (137-145); Total Protein 5.5 g/dL (6.3-8.2)
[2020-12-01] MEDS: BARICITINIB 2 MG TABLET 4 MG PO (08:50)
[2020-12-01] MEDS: dexAMETHasone 1 MG TABLET 6 MG PO (08:52)
[2020-12-01] MEDS: HYDROCODONE/ACET 5/325 TABLET 2 TAB PO ×2 (08:52→20:46)
[2020-12-01] MEDS: ENOXAPARIN 40 MG/0.4 ML SYRINGE SUBCUT (08:52)
[2020-12-01] MEDS: TAMSULOSIN 0.4 MG CAPSULE PO (08:52)
[2020-12-01] MEDS: LORazepam 1 MG TABLET PO ×2 (08:52→20:45)
[2020-12-01] MEDS: SODIUM CHLORIDE 0.9% FLUSH 10 ML IV ×2 (08:57→20:47)
--- NOTE | 2020-12-01 15:24 | CM.DPC ---
DCP Cont: Per MD and RT, pt continues on heated high flow oxygen and RT to attempt CPAP today if pt can tolerate. RN attempted to introduce SW to pt through the door and see if he would talk to SW regarding d/c planning and also Sig Other Ashlyn on the phone requesting to talk to pt. Pt lying on his side with back to the door with heated high flow on and pt declined talking on the phone with SW or Sig Other at this time as quite fatigued and sleeping. Plan: SW to attempt again tomorrow with phone assessment for d/c planning and needs when more medially appropriate. Albertina Martin MSW
--- NOTE | 2020-12-01 16:32 | P.PN_ITS ---
Subjective Subjective Interval history: 75 y/o male admitted with Acute Respiratory Failure secondary to Covid-19 Pneumonia patient continues to be markedly hypoxic, however he was able to improve oxygenation with CPAP and able to maintain his O2 sat at 40% FiO2 while on CPAP. Patient was placed on high-flow oxygen for lunch. He is not coughing. Appetite is good. Exam Vital Signs (past 8 hours): - 12/01/20 09:02 12/01/20 11:26 12/01/20 12:00 Temperature 97.7 F Pulse Rate 82 73 Respiratory Rate 33 H 20 Blood Pressure 165/78 H 165/78 H Pulse Oximetry 93 100 12/01/20 13:39 12/01/20 14:47 12/01/20 16:01 Temperature Pulse Rate 72 71 60 Respiratory Rate 20 20 16 Blood Pressure 165/78 H 165/78 H Pulse Oximetry 94 98 93 Fraction of Inspired Oxygen 0.77 Oxygen Delivery Method Heated High Flow Oxygen Flow Rate 60 Narrative Exam Narrative: Elderly male sitting in bed in no obvious distress, on heated high-flow oxygen with an FiO2 of 77% flow rate of 60 L Resp Other: Lungs: Decreased breath sounds with occasional scattered crackles Cardio Other: Cardiac exam: Regular rate and rhythm normal S1-S2 with a 2/6 systolic ejection GI Other: Abdomen soft nontender nondistended Extrem Other: Extremity no edema Objective Labs Result Diagrams: 12/01/20 04:20 12/01/20 04:20 Labs: Laboratory Results - last 24 hr 12/01/20 12/01/20 12/01/20 04:20 04:20 04:20 WBC 8.9 RBC 4.17 L Hgb 12.2 L Hct 35.0 L MCV 83.8 MCH 29.3 MCHC 35.0 RDW 14.9 H Plt Count 192 Neut % (Auto) 87.6 H Lymph % (Auto) 6.8 L Hand % (Auto) 5.5 Eos % (Auto) 0.0 L Baso % (Auto) 0.1 Neut # (Auto) 7800 H Lymph # (Auto) 600 L Hand # (Auto) 500 Eos # (Auto) 0 Baso # (Auto) 0 PT 14.5 H INR 1.3 Sodium 132 L Potassium 3.8 Chloride 99 Carbon Dioxide 30 BUN 26 H Creatinine 0.83 Estimated GFR > 60.0 BUN/Creatinine Ratio 31.3 H Glucose 135 H Calcium 7.6 L Total Bilirubin 0.7 AST 100 H ALT 89 H Alkaline Phosphatase 57 Total Protein 5.5 L Albumin 2.9 L Globulin 2.6 Albumin/Globulin Ratio 1.1 [facility] Medical History (Updated 11/28/20 @ 21:10 by ANJU Lozano-MARIIA) BPH (benign prostatic hyperplasia) Hypertension Prostate cancer Surgical History (Updated 11/28/20 @ 21:10 by ANJU Lozano-MARIIA) History of bunionectomy History of shoulder surgery Family History (Updated 11/28/20 @ 21:11 by ANJU Lozano-MARIIA) Mother Dementia Father Heart disease Social History household members: none Smoking Status: Former smoker Assessment & Plan Assessment & Plan narrative: Acute respiratory alkalosis failure with hypoxia, due to COVID pneumonia, with mild anemia and sepsis, acute, present on admission -75-year-old male admitted to the hospital with acute respiratory failure secondary to COVID pneumonia -patient continues to be markedly hypoxic, he is now on high-flow oxygen at 5 5 L with an FiO2 of 70% -patient is attempting to self prone -given his high degree of hypoxemia patient will be given a trial of CPAP in order to decrease his FiO2 -he will continue on remdesivir, Decadron, and baracitinib -will taper oxygen as he tolerated -DVT prophylaxis for COVID -patient has had persistently elevated LFTs for the last 3-4 days. Will discontinue remdesivir at this time will follow LFTs 2. Hyponatremia mild, acute, present on admission -sodium 129 -IV fluids held given his severe hypoxemia and acute respiratory failure secondary to COVID pneumonia -will follow his serum sodium closely -improved, sodium 135 today 3. BPH, secondary to prostate cancer, chronic, present on admission Continue patient's Cialis and Flomax 4. Obesity as evidence by BMI of 33, acute on chronic, present on admission. -consideration will be given for dietary counseling. 5. Elevated troponin/demand ischemia -initial troponin 0.041, 0.141, now 0.121 -patient with no complaints of chest pain -will continue to monitor closely 6. Hyperglycemia -likely related to steroid -will check blood sugars and start sliding scale insulin as needed 7. Elevated LFT's, suspect secondary to infection -Overall improving AST 297, 253, now 173 will continue to follow -possibly related to remdesivir, will discontinue
[2020-12-02] VITALS (22 sets, daily range): BP systolic 126–176; BP diastolic 69–83; PULSE 64–95; RESP 12–32; TEMP 36.5–36.7; O2SAT 88–97
[2020-12-02 04:39] LABS: Add Manual Diff / Slide Review NO; Basophils Absolute Auto 0 /uL (0-100); Basophils Percent Auto 0.1 % (0-2); Eosinophils Absolute Auto 0 /uL (0-450); Eosinophils Percent Auto 0.1 % (2-4); Hematocrit 37.1 % (41-53); Hemoglobin 12.5 g/dL (13.5-17.5); Lymphocytes Absolute Auto 800 /uL (1100-4500); Lymphocytes Percent Auto 7.7 % (25-40); Mean Corpuscular HGB Conc 33.8 % (30-36); Mean Corpuscular Hemoglobin 28.7 PG (26-34); Monocytes Absolute Auto 300 /uL (0-900); Monocytes Percent Auto 2.7 % (3-14); Neutrophils Absolute Auto 8700 /uL (1500-7000); Neutrophils Percent Auto 89.4 % (50-75); Platelet Count 227 X10^3/uL (150-400); Red Blood Cell Count 4.36 X10^6/uL (4.5-5.9); Red Cell Distribution Width 14.9 % (11.6-14.8); White Blood Cell Count 9.8 X10^3/uL (4.5-11.0)
[2020-12-02 04:48] LABS: Alanine Aminotransferase 90 IU/L (<50); Albumin 3.1 g/dL (3.5-5.0); Albumin Globulin Ratio 1.1 (1.0-2.8); Alkaline Phosphatase 61 U/L (38-126); Aspartate Aminotransferase 109 IU/L (17-59); BUN Creatinine Ratio 26.3 (6-22); Bilirubin Total 0.7 mg/dL (0.2-1.3); Blood Urea Nitrogen 21 mg/dL (9-20); Calcium 7.8 mg/dL (8.4-10.2); Carbon Dioxide 31 mmol/L (22-32); Chloride 100 mmol/L (98-107); Estimated Glomerular Filt Rate > 60.0 mL/min (>60); Globulin 2.7 g/dL (1.7-4.1); Glucose 111 mg/dL (80-110); HEMOLYSIS < 15 (0-50); Potassium 4.3 mmol/L (3.4-5.1); Sodium 134 mmol/L (137-145); Total Protein 5.8 g/dL (6.3-8.2)
[2020-12-02] MEDS: HYDROCODONE/ACET 5/325 TABLET 2 TAB PO ×3 (04:49→16:06)
[2020-12-02 04:59] LABS: D Dimer 630 ng/mL (<230)
--- NOTE | 2020-12-02 06:34 | PC.NURSE ---
Communications Scientist Note-Patient slept mostly on his left side, HHF at 60L/45% until 0200, then placed on C-pap but only tolerated it for approximately 1 1/2 hours. After put back on HHF, sats stayed low 80s, so RT increased FIO2 to 75% to keep SpO2 >88%. [place] given for pain while coughing.
--- NOTE | 2020-12-02 07:32 | P.PN_ITS ---
Subjective Subjective Date Patient Seen: 12/02/20 Interval history: He is seen in his room today to follow-up his hypoxic respiratory failure and COVID pneumonia. He is being somewhat difficult for respiratory therapy, apparently indicating that he does not want to work on taking deep breaths because ?the medicine should get me better. ? When I walk in the room to speak with him and examine him he keeps his eyes shut and either is unable to hear me to wake up or refuses to wake up and participate/engage. He is lying on his side in his bed wearing his oxygen. Exam Vital Signs (past 8 hours): - 12/01/20 23:35 12/01/20 23:50 12/02/20 00:00 Temperature 97.7 F Pulse Rate 70 72 Respiratory Rate 18 20 Blood Pressure 133/61 Pulse Oximetry 96 94 96 12/02/20 03:56 12/02/20 04:00 12/02/20 07:03 Temperature 97.7 F Pulse Rate 75 68 Respiratory Rate 22 21 16 Blood Pressure 176/83 H Pulse Oximetry 92 93 92 Fraction of Inspired Oxygen 40 Oxygen Delivery Method Heated High Flow Oxygen Flow Rate 60 Narrative Exam Narrative: Lying on his side in his bed, either hard of hearing/fatigued or refusing to participate/engage. No apparent distress Heart is regular rate and rhythm without murmur Lungs are clear to auscultation bilaterally Extremities have no ankle edema. Objective Labs Result Diagrams: 12/02/20 04:25 12/02/20 04:25 Labs: Laboratory Results - last 24 hr 12/02/20 12/02/20 12/02/20 04:25 04:25 04:25 WBC 9.8 RBC 4.36 L Hgb 12.5 L Hct 37.1 L MCV 85.0 MCH 28.7 MCHC 33.8 RDW 14.9 H Plt Count 227 Neut % (Auto) 89.4 H Lymph % (Auto) 7.7 L [place]ack[place] % (Auto) 2.7 L Eos % (Auto) 0.1 L Baso % (Auto) 0.1 Neut # (Auto) 8700 H Lymph # (Auto) 800 L [place]ack[place] # (Auto) 300 Eos # (Auto) 0 Baso # (Auto) 0 D-Dimer 630 H Sodium 134 L Potassium 4.3 Chloride 100 Carbon Dioxide 31 BUN 21 H Creatinine 0.80 Estimated GFR > 60.0 BUN/Creatinine Ratio 26.3 H Glucose 111 H Calcium 7.8 L Total Bilirubin 0.7 AST 109 H ALT 90 H Alkaline Phosphatase 61 Total Protein 5.8 L Albumin 3.1 L Globulin 2.7 Albumin/Globulin Ratio 1.1 [facility] Medical History (Updated 11/28/20 @ 21:10 by AJNU Lozano-MARIIA) BPH (benign prostatic hyperplasia) Hypertension Prostate cancer Surgical History (Updated 11/28/20 @ 21:10 by SAMANTHA Lozano) History of bunionectomy History of shoulder surgery Family History (Updated 11/28/20 @ 21:11 by ANJU Lozano-MARIIA) Mother Dementia Father Heart disease Social History household members: none Smoking Status: Former smoker Assessment & Plan Assessment & Plan narrative: Acute respiratory alkalosis failure with hypoxia, due to COVID pneumonia, with mild anemia and sepsis, acute, present on admission -75-year-old male admitted to the hospital with acute respiratory failure secondary to COVID pneumonia -patient continues to be markedly hypoxic, he is now on high-flow oxygen at 60 L with an FiO2 of 40% -patient is declining to take deep breaths or to self prone -given his high degree of hypoxemia patient will be given a trial of CPAP in order to decrease his FiO2 -he will continue on Decadron, and baracitinib -will taper oxygen as tolerated -DVT prophylaxis for COVID -patient has had persistently elevated LFTs for the last 3-4 days. Stopped remdesivir on 12/01 and will follow LFTs 2. Hyponatremia mild, acute, present on admission -sodium was as low as 127 -IV fluids held given his severe hypoxemia and acute respiratory failure secondary to COVID pneumonia -will follow his serum sodium closely -improved, sodium 134 today 3. BPH, secondary to prostate cancer, chronic, present on admission Continue patient's Cialis and Flomax 4. Obesity with a BMI of 33, acute on chronic, present on admission. -consideration will be given for dietary counseling. 5. Elevated troponin/demand ischemia -initial troponin 0.141, 0.168, now 0.121 -patient with no complaints of chest pain -will continue to monitor closely 6. Hyperglycemia -likely related to steroid -will check blood sugars and start sliding scale insulin as needed 7. Elevated LFT's, suspect secondary to infection or Remdesivir -Overall improving -AST 297, 253, 173 now 109 will continue to follow -possibly related to remdesivir, was stopped
[2020-12-02] MEDS: TAMSULOSIN 0.4 MG CAPSULE PO (08:36)
[2020-12-02] MEDS: dexAMETHasone 1 MG TABLET 6 MG PO (08:36)
[2020-12-02] MEDS: METOPROLOL ER 50 MG TABLET PO (08:36)
[2020-12-02] MEDS: MAGNESIUM HYDROXIDE 30 ML UDC PO (08:36)
[2020-12-02] MEDS: BARICITINIB 2 MG TABLET 4 MG PO (08:36)
[2020-12-02] MEDS: LORazepam 1 MG TABLET PO ×3 (08:36→20:23)
[2020-12-02] MEDS: SODIUM CHLORIDE 0.9% FLUSH 10 ML IV ×2 (08:37→20:11)
[2020-12-02] MEDS: ENOXAPARIN 40 MG/0.4 ML SYRINGE SUBCUT (08:37)
--- NOTE | 2020-12-02 15:41 | CM.DANOTE ---
DCP Assessment: Patient is a 75 yr old male here with Covid pneumonia. Patient currently on high flow O2 and not able to talk with CM on the phone Due to oxygenation needs. According to medical note patient currently lives independently at home by himself with Significant other Ashlyn who lives near by. CM spoke with ICU nursing staff and was told patient still not able to talk with DC supply planner due to SOB but has been improving and maybe able to talk via phone tomorrow. Patient according to Nursing is independent at base line and plans on going home when he is ready. Pt likely to be here for at least another 3 days according to MD [place] and nursing staff. Insurance: [facility] and [facility] Plan: CM department to follow up with patient tomorrow Via phone to determine DC plan depending on patients need, Home vrs Home with HH expected. but need PT evaluations and Respiratory improvement. Tiffani Kaur RN Discharge Planning/Care Management Advanced directive, confirm from FAMILY Start: 11/28/20 22:36 Freq: Q24H Status: Complete Protocol: Document 11/28/20 22:36 JK (Rec: 11/28/20 22:38 JK [id number]) Advance Directive, confirm on record Time 21:30 Person contacted Patient Copy received No Document 11/29/20 22:00 GH (Rec: 11/29/20 22:03 GH [id number]) Advance Directive, confirm on record Time 21:30 Person contacted Patient Copy received No Document 11/30/20 22:00 CW (Rec: 11/30/20 22:19 CW [id number]) Advance Directive, confirm on record Time 21:30 Person contacted Patient Copy received No Copy received No Advanced directive available on record No Document 12/01/20 09:48 TJB (Rec: 12/01/20 09:48 TJB [id number]) Advance Directive, confirm on record Time 21:30 Person contacted Patient Copy received No Copy received No Advanced directive available on record No CM Discharge Assessment Start: 12/02/20 15:37 Freq: Status: Active Protocol: Document 12/02/20 15:37 HS (Rec: 12/02/20 15:41 HS [id number]) Discharge Planning Assessment Assigned Armed Security Professional Tiffani Kaur RN DPOA/Assigned Designee Name Ashlyn James ( Girl friend) Contact Information [phone] Advance Directives? Yes Advance Directives on File No: Ashlyn Celis has a copy History Provided By Medical Record Prior Living Arrangements House Household Members none Type of transporation used prior to Drives own vehicle admit Independent with ADL's Yes Is patient alert and oriented? Currently on HIGH flow Isolation not able to talk on phone Caregiver for Another No Comment Anticipated DC need unknown at this time - Home vrs home with HH depending on patients recovery and reduction of oxygen needs Barriers to Discharge No Discharge Plan Home Whiteboard Updated in Patient Room with No name and ext. # of Armed Security Professional Comment not able to go into patients room- patient in Isolation due to Covid+ Review Status In Process Next Review Type Continued Stay Review
[2020-12-03] VITALS (21 sets, daily range): BP systolic 115–185; BP diastolic 63–82; PULSE 72–101; RESP 14–35; TEMP 36.2–37.1; O2SAT 64–96; BMI 30.3
[2020-12-03] MEDS: LORazepam 2 MG/ML INJ 1 MG IV (03:20)
[2020-12-03 04:34] LABS: Alanine Aminotransferase 89 IU/L (<50); Alkaline Phosphatase 69 U/L (38-126); Aspartate Aminotransferase 92 IU/L (17-59); BUN Creatinine Ratio 23.5 (6-22); Bilirubin Total 0.7 mg/dL (0.2-1.3); Blood Urea Nitrogen 19 mg/dL (9-20); Calcium 7.7 mg/dL (8.4-10.2); Carbon Dioxide 29 mmol/L (22-32); Chloride 100 mmol/L (98-107); Estimated Glomerular Filt Rate > 60.0 mL/min (>60); Globulin 2.9 g/dL (1.7-4.1); Glucose 106 mg/dL (80-110); HEMOLYSIS < 15 (0-50); Potassium 4.2 mmol/L (3.4-5.1); Sodium 133 mmol/L (137-145); Total Protein 5.9 g/dL (6.3-8.2)
[2020-12-03 05:22] LABS: Fractionated Inspired Oxygen 80; HCO3 ABG 24 mmol/L (22-26); Oxygen Saturation ABG 95 % (95-100); PCO2 ABG 31.5 mmHg (35-45); PO2 ABG 66 mmHg (80-100); TCO2 ABG 25 mmol/L (21-31); pH ABG 7.49 (7.35-7.45)
[2020-12-03 08:13] LABS: Hematocrit 37.1 % (41-53); Hemoglobin 12.8 g/dL (13.5-17.5); Mean Corpuscular HGB Conc 34.6 % (30-36); Mean Corpuscular Hemoglobin 29.3 PG (26-34); Mean Corpuscular Volume 84.6 fL (80-100); Platelet Count 258 X10^3/uL (150-400); Red Blood Cell Count 4.39 X10^6/uL (4.5-5.9); Red Cell Distribution Width 14.7 % (11.6-14.8); White Blood Cell Count 9.8 X10^3/uL (4.5-11.0)
[2020-12-03 08:14] LABS: Add Manual Diff / Slide Review YES
[2020-12-03 08:32] LABS: Neutrophils Absolute Manual 8820 /uL (3000-5900); RBC Morphology Normal Morphology; Total Cells Counted 100
[2020-12-03] MEDS: ENOXAPARIN 40 MG/0.4 ML SYRINGE SUBCUT (09:12)
[2020-12-03] MEDS: HYDROCODONE/ACET 5/325 TABLET 2 TAB PO ×3 (09:12→22:45)
[2020-12-03] MEDS: TAMSULOSIN 0.4 MG CAPSULE PO (09:13)
[2020-12-03] MEDS: METOPROLOL ER 50 MG TABLET PO (09:13)
[2020-12-03] MEDS: LORazepam 1 MG TABLET PO (09:13)
[2020-12-03] MEDS: BARICITINIB 2 MG TABLET 4 MG PO (09:14)
[2020-12-03] MEDS: DEXAMETHASONE 10 MG/ML VIAL 6 MG IV (09:14)
[2020-12-03] MEDS: SODIUM CHLORIDE 0.9% FLUSH 10 ML IV ×2 (09:15→09:16)
--- NOTE | 2020-12-03 11:25 | P.PN_ITS ---
Subjective Subjective Date Patient Seen: 12/03/20 Time Patient Seen: 08:00 Interval history: Today he feels fatigued. He just wants to sleep. He is requiring increased oxygen delivered through nasal cannula. I spoke with the patient, with staff present, and nursing staff also spoke with patient. He is clear he would not want to be intubated if he does not tolerate high flow oxygen. Exam Vital Signs (past 8 hours): - 12/03/20 04:00 12/03/20 04:45 12/03/20 05:12 Temperature 97.9 F Pulse Rate 72 83 Respiratory Rate 23 26 H Blood Pressure 161/78 H 161/78 H Pulse Oximetry 88 L 85 L 94 12/03/20 08:19 12/03/20 08:35 12/03/20 10:15 Temperature 98.8 F Pulse Rate 87 86 86 Respiratory Rate 28 H 35 H 22 Blood Pressure 185/82 H Pulse Oximetry 88 L 96 92 Fraction of Inspired Oxygen 95 Oxygen Delivery Method High Flow Nasal Cannula Oxygen Flow Rate 15 Narrative Exam Narrative: GEN: Lying on his side in his bed, fatigued CV: Heart is regular rate and rhythm without murmur PULM: decreased breath sounds bilaterally EXT: no edema. Objective Labs Result Diagrams: 12/03/20 04:50 12/03/20 04:10 Labs: Laboratory Results - last 24 hr 12/03/20 12/03/20 12/03/20 04:10 04:50 05:05 WBC 9.8 RBC 4.39 L Hgb 12.8 L Hct 37.1 L MCV 84.6 MCH 29.3 MCHC 34.6 RDW 14.7 Plt Count 258 Neut % (Auto) Not Reportable Lymph % (Auto) Not Reportable Bartholomew % (Auto) Not Reportable Eos % (Auto) Not Reportable Baso % (Auto) Not Reportable Lymph # (Auto) Not Reportable Bartholomew # (Auto) Not Reportable Baso # (Auto) Not Reportable Total Counted 100 Seg Neutrophils % 89.0 H Band Neutrophils % 1.0 L Lymphocytes % (Manual) 1.0 L Atypical Lymphs % 2.0 H Monocytes % (Manual) 6.0 Eosinophils % (Manual) 1.0 L Neutrophils # (Manual) 8820 H RBC Morphology Normal morphology ABG pH 7.49 H ABG pCO2 31.5 L ABG pO2 66 L ABG HCO3 24 ABG Total CO2 25 ABG O2 Saturation 95 ABG Base Excess 1.0 FiO2 80 Sodium 133 L Potassium 4.2 Chloride 100 Carbon Dioxide 29 BUN 19 Creatinine 0.81 Estimated GFR > 60.0 BUN/Creatinine Ratio 23.5 H Glucose 106 Calcium 7.7 L Total Bilirubin 0.7 AST 92 H ALT 89 H Alkaline Phosphatase 69 Total Protein 5.9 L Albumin 3.0 L Globulin 2.9 Albumin/Globulin Ratio 1.0 PFSH Medical History (Updated 11/28/20 @ 21:10 by SAMANTHA Lozano) BPH (benign prostatic hyperplasia) Hypertension Prostate cancer Surgical History (Updated 11/28/20 @ 21:10 by SAMANTHA Lozano) History of bunionectomy History of shoulder surgery Family History (Updated 11/28/20 @ 21:11 by SAMANTHA Lozano) Mother Dementia Father Heart disease Social History household members: none Smoking Status: Former smoker Assessment & Plan Assessment & Plan narrative: Mr. Riojas is a 75M who presents with acute hypoxemic respiratory failure due to COVID pneumonia 1. Acute respiratory alkalosis failure with hypoxia, due to COVID pneumonia, with mild anemia and sepsis, acute, present on admission -acute respiratory failure secondary to COVID pneumonia -patient continues to be markedly hypoxic, he is now on high-flow oxygen at 60 L with an FiO2 of 95% -patient is declining to take deep breaths or to self prone -he does not want intubation -he will continue on Decadron, and baracitinib -will taper oxygen as tolerated -DVT prophylaxis for COVID -patient has had persistently elevated LFTs for the last 3-4 days. Stopped remdesivir on 12/01 and will follow LFTs 2. Hyponatremia mild, acute, present on admission -sodium was as low as 127 -IV fluids held given his severe hypoxemia and acute respiratory failure secondary to COVID pneumonia -will follow his serum sodium closely -improved, sodium 134 today 3. BPH, secondary to prostate cancer, chronic, present on admission -Continue patient's Cialis and Flomax 4. Obesity with a BMI of 33, acute on chronic, present on admission. -consideration will be given for dietary counseling. 5. Elevated troponin/demand ischemia with type 2 PA -initial troponin 0.141, 0.168, now 0.121 -patient with no complaints of chest pain -will continue to monitor closely 6. Hyperglycemia -likely related to steroid -will check blood sugars and start sliding scale insulin as needed 7. Elevated LFT's, suspect secondary to infection or Remdesivir -Overall improving -AST 297, 253, 173 now 109 will continue to follow -possibly related to remdesivir, was stopped After discussion of the severity of his illness, patient requests not to be resuscitated/intubated.
[2020-12-03] MEDS: LORazepam 1 MG TABLET 0.5 MG PO (14:02)
--- NOTE | 2020-12-03 15:33 | CM.DPC ---
DCP Cont: Per MD, pt continues to need significant amount of Heated High flow oxygen without much progress and has not been tolerating proning much. Discussed bedside between MD and RN and pt confirms that he is not agreeable to intubation and has changed his code status to DNR/DNI. Pt does not seem to be improving with his oxygen and medical needs. RN received a call from pt's son Yannick Riojas ([phone]) who resides in [facility] and is aware his father is admitted with COVID and Yannick is pt's NOK and now his primary contact. RN provided son's contact information to MD as pt likely may not recover from his COVID dx. Plan: SW to follow closely for pt's progress and possible decline towards determining if pt will be able to d/c from the hospital and his discharge needs. Pending progress, SW to likely call pt's son to check in tomorrow. AYDEE Teixeira
--- NOTE | 2020-12-03 16:15 | PC.NURSE ---
PT FOUND TO BE QUITE AGITATED AND CONFUSED THIS AM ( STRIPPING OFF GOWN/CARDIAC MONITORS AND MOST IMPORTANTLY, HIS 02) INITIALLY HHFNC @ 60L/80% AND QUICKLY INCREASED TO 60l/95% - PT UPON QUESTIONING FROM BOTH MD AND MYSELF IN SEVERAL DIFFERENT AVENUES AND EACH TIME HE INDICATED HE WOULD NOT LIKE CPR IF HEART WERE TO STOP AND HE DECLINED INTUBATION IF THAT WAS REQUIRED. ATTEMPTED TO CALL SIGNIFICANT OTHER, SUKH MCKEONOLLOUGH AT AVAILABLE PHONE NUMBERS AND WAS UNABLE TO REACH HER- DID UPDATE SON , NEL ( WITH PTS PERMISSION) WITH HIS STATUS CHANGE. LATER IN DAY - SUKH CALLED AND WAS UPDATED WELL CONFIRMING HER PHONE NUMBER AND SHE WAS ASKED TO FAX IN TO [facility] OF [facility]VANCED DIRECTIVES ( NOT RECEIVED OF YET)- PT CHANGED OVER TO HFNC AT 15L WHICH HE HAS MOSTLY LEFT IN PLACE- REORIENTED FREQUENTLY - MANDY WITH ADEQUATE UOP- PT UNABLE TO PERFORM INCENTIVE SPIROMETER OR FLUTTER VALVE
[2020-12-03] MEDS: NITROGLYCERIN 0.4 MG SL TAB SL (23:15)
[2020-12-03] MEDS: LORazepam 0.5 MG TABLET PO (23:21)
[2020-12-03] MEDS: ASPIRIN 81 MG CHEW TAB 324 MG PO (23:28)
[2020-12-03] MEDS: MORPHINE 10 MG/0.5 ML ORAL SYRINGE PO (23:35)
[2020-12-03] MEDS: HEPARIN 5,000 UNIT/ML VIAL 5000 UNIT IV (23:51)
[2020-12-03] MEDS: HEPARIN DRIP 25,000 UNIT/500 ML IV.SOLN 20 UNIT IV (23:52)
[2020-12-04] VITALS: BP 112/66; PULSE 101; RESP 30; O2SAT 97
--- NOTE | 2020-12-04 00:03 | PM.DS.1 ---
History of Present Illness History of Present Illness Date Patient Seen: 12/04/20 Time Patient Seen: 00:14 Chief complaint: very weak and aches all over Narrative: At approximately 11:20 p.m. the patient began to have ST changes on telemedicine monitor, EKG and troponins were ordered 324 of aspirin given, nitro x2 chest pain was not relieved, EKG demonstrated STEMI with a right bundle-branch block, notified attending Dr. Mireles, heparin bolus with heparin drip initiated, I contacted Ashlyn Hilliard the patient's significant other to verify that the patient and herself as the decision maker wanted transport to [facility] for cardiac catheterization procedure. Ms. Galindo did verbally authorized the transport of her partner. Contacted [facility] ED and spoke with Dr. Shirley who accepted the patient to be transported for cardiac catheterization. Notified associate director of nursing to fax relevant information, contact 911 for transport. Patient is COVID positive as of 11/28/2020. Patient is a 75-year-old male Kenton Riojas presented to the ED with chief complaint of intense weakness and his fatigue over the last 3 weeks, which has worsed over the last few days. He reports that he had contact with his neighbor who recently tested positive for COVID. He is non vaccinated for COVID. He had an episode of chest pain 3 weeks ago and is scheduled for angiography next Thursday at [facility]. Upon admit he denies chest pain, but continues to be SOB unchanged with 5L/NC at this time. Patient is relaxed, and demonstrates no work of breathing, though only answers questions in small 3-4 word bursts. He reports a decreased appetite, all over body aches, and significant fatigue. Patient reports that he normally walks frequesntly but has been unable to do so starting 3 weeks ago. Patient denies fever, chills, nausea, abdominal pain, vomiting, diarrhea, constipation, urinary symptoms urgency frequency dysuria, hematuria, melena or hemtaemesis, rashes, injurt, infection, or trauma. Patient states that he has no cardiac or respiratory conditions but did smoke for approximately 30 years and quit in 1989. Patient only reports history of hypertension which no longer requires treatment and 2 occurrences of prostate cancer the last being 2015 resulting in subsequent BPH which he treats with Flomax and Cialis. Patient's vitals upon admit are stable temp 97.8?, BP 139/71, HR 71, R 20, O2 saturation 93% on 5 L nasal cannula. Patient's demonstrates respiratory alkalosis for ABGs pH 7.51, pCO2 31.4, PO2 65. Patient does have a decreased HGB 13.1, HCT 38.1, MCV is normal, platelets 128 (11/01/20-207), neutrophils within normal limits, ferritin 2780, lactate D 3368. Mild hyponatremia with sodium 129, chloride 97, BUN 24, glucose 129, creatinine and GFR are within normal limits, proBNP within normal limits, total protein 6.2, albumin 3.3, procalcitonin 0.21 within normal limits. Patient's chest x-ray demonstrated patchy bilateral pulmonary opacities suggestive of pneumonia unable to rule out edema and or atelectasis. No EKG found in ED chart note nor cardio server administrator to review. Patient given loading doses of remdesivir and dexamethasone in ED. Patient admitted with acute respiratory alkalosis failure with hypoxia, due to COVID pneumonia, with mild hyponatremia. Discharge Providers Provider Date of admission: 11/28/20 18:40 Discharge Date: 12/04/20 Primary care physician: Walter Gilbert MD Consults: 11/28/20 19:42 Consult to Respiratory Therapy Evaluate & Treat Comment: Covid pneumonia Physician Instructions: Evaluate and treat 11/30/20 13:25 Consult to Respiratory Therapy Evaluate & Treat Comment: Physician Instructions: Evaluate and treat 12/03/20 23:12 Consult After Hours PICC Line RN Routine Comment: Discharge provider: ANJU Lozano- Summary Hospital Course Discharge Diagnosis: Acute STEMI Acute respiratory failure secondary to COVID pneumonia BPH Hyponatremia Hospital Course: -acute respiratory failure secondary to COVID pneumonia -patient continues to be markedly hypoxic, he is now on high-flow oxygen at 60 L with an FiO2 of 95% -patient is declining to take deep breaths or to self prone -he does not want intubation -he will continue on Decadron, and baracitinib -will taper oxygen as tolerated -DVT prophylaxis for COVID -patient has had persistently elevated LFTs for the last 3-4 days. Stopped remdesivir on 12/01 and will follow LFTs 2. Hyponatremia mild, acute, present on admission -sodium was as low as 127 -IV fluids held given his severe hypoxemia and acute respiratory failure secondary to COVID pneumonia -will follow his serum sodium closely -improved, sodium 134 today Status at Discharge Cognitive/behavioral status at discharge: confused Functional status at discharge: bed bound Overall status at discharge: other Exam Vital Signs (past 8 hours): - 12/03/20 16:52 12/03/20 17:33 12/03/20 20:00 Pulse Rate 73 86 Respiratory Rate 18 24 Blood Pressure 169/73 H Pulse Oximetry 89 L 91 92 12/03/20 21:00 12/03/20 23:15 Pulse Rate 101 H Respiratory Rate Blood Pressure 165/79 H Pulse Oximetry 89 L Fraction of Inspired Oxygen 95 Oxygen Delivery Method High Flow Nasal Cannula Oxygen Flow Rate 15 Objective ECG Impression: STEMI with right bundle tesfaye block Labs Result Diagrams: 12/03/20 04:50 12/03/20 04:10 Labs: Laboratory Results - last 24 hr 12/03/20 12/03/20 12/03/20 04:10 04:50 05:05 WBC 9.8 RBC 4.39 L Hgb 12.8 L Hct 37.1 L MCV 84.6 MCH 29.3 MCHC 34.6 RDW 14.7 Plt Count 258 Neut % (Auto) Not Reportable Lymph % (Auto) Not Reportable [place] % (Auto) Not Reportable Eos % (Auto) Not Reportable Baso % (Auto) Not Reportable Lymph # (Auto) Not Reportable [place] # (Auto) Not Reportable Baso # (Auto) Not Reportable Total Counted 100 Seg Neutrophils % 89.0 H Band Neutrophils % 1.0 L Lymphocytes % (Manual) 1.0 L Atypical Lymphs % 2.0 H Monocytes % (Manual) 6.0 Eosinophils % (Manual) 1.0 L Neutrophils # (Manual) 8820 H RBC Morphology Normal morphology ABG pH 7.49 H ABG pCO2 31.5 L ABG pO2 66 L ABG HCO3 24 ABG Total CO2 25 ABG O2 Saturation 95 ABG Base Excess 1.0 FiO2 80 Sodium 133 L Potassium 4.2 Chloride 100 Carbon Dioxide 29 BUN 19 Creatinine 0.81 Estimated GFR > 60.0 BUN/Creatinine Ratio 23.5 H Glucose 106 Calcium 7.7 L Total Bilirubin 0.7 AST 92 H ALT 89 H Alkaline Phosphatase 69 Total Protein 5.9 L Albumin 3.0 L Globulin 2.9 Albumin/Globulin Ratio 1.0 [facility] Medical History BPH (benign prostatic hyperplasia) Hypertension Prostate cancer Surgical History (Updated 11/28/20 @ 21:10 by SAMANTHA Lozano) History of bunionectomy History of shoulder surgery Family History Mother Dementia Father Heart disease Social History household members: none Smoking Status: Former smoker Discharge Plan Discharge Plan Disposition: [facility] Other facility: [facility] Provider Discharge Comment: Patient be transported for STEMI cardiac catheterization Discharge orders & Medications Follow up/Referrals: Walter Gilbert MD [Primary Care Provider] - Discharge Data Primary Care Provider: Walter Gilbert
[2020-12-04 00:06] LABS: PTT Partial Thromboplastin Tim 28 SECONDS (26.4-36.2)
[2020-12-04 00:21] LABS: Troponin I 0.294 ng/mL (0.01-0.034)
== END 2020-12-04 00:20 | disposition short-term general hospital (02) | DRG 871 ==
LOC: ED 17:22 → AC 18:44 → ICU 11-29 11:35 → AC 11-30 13:34 → ICU 11-30 13:34
PROVIDERS: Emergency Medicine; Family Medicine; Internal Medicine; Nurse Practitioner Family; Admitting Provider Internal Medicine; Emergency Provider Physician Assistant; Family Provider Family Medicine; PCP Family Medicine; Referring Provider Physician Assistant; Visit Provider Internal Medicine
DX: A41.89 Other specified sepsis (principal); U07.1 COVID-19; J12.82 Pneumonia due to coronavirus disease 2019; J96.01 Acute respiratory failure with hypoxia; I21.3 ST elevation (STEMI) myocardial infarction of unspecified site; E87.1 Hypo-osmolality and hyponatremia; I45.10 Unspecified right bundle-branch block; B97.89 Other viral agents as the cause of diseases classified elsewhere; R65.20 Severe sepsis without septic shock; E66.9 Obesity, unspecified; Z87.891 Personal history of nicotine dependence; Z68.33 Body mass index [BMI] 33.0-33.9, adult
CPT/HCPCS: 36415; 36592; 36600; 71045; 80053; 82728; 82805; 82962; 83605; 83615; 83735; 83880; 84145; 84484; 85007; 85025; 85379; 85610; 85730; 87635; 93005; 93010; 94640; 94660; 94760; 94762; 96365; 96375; 99284; 99285; C9803; J1100; J1644; J1650; J1815; J2060; J2930